=== PATIENT | male | born 1965 | race Caucasian/White ===

== ENCOUNTER 2020-06-23 10:41 | Emergency (ER) | payer MEDICAID ==
[~2020-06-23] VITALS: Ht 172.7 cm; Wt 93.2 kg
[~2020-06-23 10:41] MED LIST: BAC10T PO; BISA-77 PO; CLON-528 PO; ESCI20TA29 PO; FAMO-1 PO; LEVO175T38 PO; MOT200T PO; NORCO10T PO; ROSU20TA2 PO; TRAZ-91 PO
--- NOTE | 2020-06-23 11:06 | NUR ---
Pt having normal bowel movements, passing gas and urinating normally.
[2020-06-23 12:37] LABS: ALANINE AMINOTRANSFERASE 34 U/L (12-78); ALBUMIN 3.9 G/DL (3.4-5.0); ALBUMIN/GLOBULIN RATIO 1.2 (1.1-1.5); ALKALINE PHOSPHATASE 31 IU/L (46-116); ANION GAP 8 (8-16); BILIRUBIN,TOTAL 0.2 MG/DL (0.1-1.0); BLOOD UREA NITROGEN 17 MG/DL (7-18); BUN/CREATININE RATIO 12.5 (5.4-32.0); CALCIUM 8.8 MG/DL (8.5-10.1); CHLORIDE 102 MMOL/L (99-107); CREATININE 1.36 MG/DL (0.60-1.10); GLUCOSE 121 MG/DL (70-104); LIPASE 175 U/L (73-393); POTASSIUM 3.9 MMOL/L (3.5-5.1); SODIUM 139 MMOL/L (135-145); TOTAL PROTEIN 7.2 G/DL (6.4-8.2); eGFR 54 ML/MIN
[2020-06-23 12:48] LABS: ASPARTATE AMINO TRANSFERASE 43 U/L (10-37)
[2020-06-23] MEDS ORDERED: iohexol 300mg/ml 100ml inj. ONE (12:54)
[2020-06-23 12:56] LABS: BASOPHILS % (AUTO) 0.8 % (0-1); EOSINOPHILS # (AUTO) 0.1 X10'3 (0-0.9); EOSINOPHILS % (AUTO) 2.5 % (0-6); HEMATOCRIT 37.3 % (42.0-52.0); HEMOGLOBIN 12.8 g/dl (14.0-17.9); LYMPHOCYTES # (AUTO) 1.7 X10'3 (1.1-4.8); LYMPHOCYTES % (AUTO) 32.1 % (21-51); MEAN CORPUSCULAR HGB CONC 34.4 g/dL (33.0-36.5); MEAN CORPUSCULAR VOLUME 93.1 FL (78-98); MEAN PLATELET VOLUME 8.3 FL (7.4-10.4); MONOCYTES # (AUTO) 0.4 X10'3 (0-0.9); MONOCYTES % (AUTO) 6.5 % (2-12); NEUTROPHILS # (AUTO) 3.2 X10'3 (1.8-7.7); NEUTROPHILS % (AUTO) 58.1 % (42-75); PLATELET COUNT 209 X10'3 (140-440); RED BLOOD COUNT 4.01 X10'6 (4.70-6.10); RED CELL DISTRIBUTION WIDTH 13.4 % (11.5-14.5); WHITE BLOOD COUNT 5.4 X10'3 (4.5-11.0)
[2020-06-23] MEDS ORDERED: acetaminophen 325mg tablet PO ONE (13:40)
--- NOTE | 2020-06-23 13:41 | NUR ---
Verbal order for tyleonl 650mg secondary to ABD pain one time now.
[2020-06-23 14:46] VITALS: BP 142/92
== END 2020-06-23 14:48 | disposition home or self-care (01) ==
LOC: ER 10:42
DX: K42.9 Umbilical hernia without obstruction or gangrene (principal); E78.00 Pure hypercholesterolemia, unspecified; G89.29 Other chronic pain; F32.9 Major depressive disorder, single episode, unspecified; F17.200 Nicotine dependence, unspecified, uncomplicated; E05.90 Thyrotoxicosis, unspecified without thyrotoxic crisis or storm; G47.30 Sleep apnea, unspecified; Z59.0 Homelessness; Z88.1 Allergy status to other antibiotic agents; Z88.0 Allergy status to penicillin; Z79.899 Other long term (current) drug therapy
CPT/HCPCS: 36415; 74177; 80053; 83690; 85025; 99285; Q9967

== ENCOUNTER 2021-05-13 17:17 | Emergency (ER) | payer MEDICAID ==
[2021-05-13 17:54] VITALS: BP 135/81
[2021-05-13] MEDS ORDERED: CLOT15CR73 TOP (18:25)
== END 2021-05-13 18:34 | disposition home or self-care (01) ==
LOC: ER 17:18
DX: L30.4 Erythema intertrigo (principal); L02.214 Cutaneous abscess of groin; E78.00 Pure hypercholesterolemia, unspecified; G89.29 Other chronic pain; F32.9 Major depressive disorder, single episode, unspecified; E05.90 Thyrotoxicosis, unspecified without thyrotoxic crisis or storm; Z98.890 Other specified postprocedural states; Z59.0 Homelessness; Z88.0 Allergy status to penicillin; Z88.1 Allergy status to other antibiotic agents; Z79.2 Long term (current) use of antibiotics; Z79.899 Other long term (current) drug therapy
CPT/HCPCS: 99283

== ENCOUNTER 2021-08-11 09:10 | Inpatient (IN) | payer MEDICAID ==
[~2021-08-11] VITALS: Ht 170.2 cm; Wt 80.7 kg
[~2021-08-11 09:10] MED LIST changes: +CLOT15CR73 TOP
--- NOTE | 2021-08-11 11:29 | NUR ---
PAGER ID: [phone] MESSAGE: Do you have direct admit from [facility]? If not I will page group pager. Emely [phone]
--- NOTE | 2021-08-11 11:29 | NUR ---
Tessa called back and wanted to know if pt. is here. Pt. has just arrived in [id number]
--- NOTE | 2021-08-11 11:29 | NUR ---
Pt. oriented to room and given his call light.
[2021-08-11 11:30] VITALS: BP 90/47
[2021-08-11] MEDS ORDERED: metoclopramide 5 mg/ml inj IV PRN (12:35)
[2021-08-11] MEDS ORDERED: mag hydrox/Alum hydrox/simeth 30ml oral suspension PO PRN (12:35)
[2021-08-11] MEDS ORDERED: magnesium Cl slow-release 64mg tablet PO PRN (12:35)
[2021-08-11] MEDS ORDERED: magnesium 4gm in 100ml NS 100 ML IV PRN (12:35)
[2021-08-11] MEDS ORDERED: HYDROcodone/acetaminophen 5mg/325mg tablet PO PRN (12:35)
[2021-08-11] MEDS ORDERED: ALBUTEROL INHALER 1 PUFF/90 MCG INHALER IH PRN (12:35)
[2021-08-11] MEDS ORDERED: magnesium 2GM in 50ml NS 50 ML IV PRN (12:35)
[2021-08-11] MEDS ORDERED: potassium Cl 20 mEq SR tablet PO PRN (12:35)
[2021-08-11] MEDS ORDERED: potassium Cl 40MEQ/1/2NS 520ml 520 ML IV PRN ×2 (12:35)
[2021-08-11] MEDS ORDERED: magnesium hydroxide 30ml (MOM) UD suspension PO PRN (12:35)
[2021-08-11] MEDS ORDERED: bisacodyl 10mg suppository rectal RC PRN (12:35)
[2021-08-11] MEDS ORDERED: ondansetron/PF 4mg/2ml inj IV PRN (12:35)
[2021-08-11] MEDS ORDERED: acetaminophen 325mg tablet PO PRN ×2 (12:35)
[2021-08-11] MEDS: HYDROcodone/acetaminophen 10/325mg tab PO PRN (13:48)
[2021-08-11] MEDS: normal saline 1000ml 1,000 ML IV SCH (13:49)
[2021-08-11 13:51] LABS: BASOPHILS % (AUTO) 0 % (0-1); EOSINOPHILS % (AUTO) 0 % (0-6); HEMOGLOBIN 11.2 g/dl (14.0-17.9); LYMPHOCYTES # (AUTO) 0.3 X10'3 (1.1-4.8); MEAN CORPUSCULAR HEMOGLOBIN 32.8 PG (27.0-31.0); MEAN CORPUSCULAR VOLUME 96.4 FL (78-98); MEAN PLATELET VOLUME 8.7 FL (7.4-10.4); MONOCYTES # (AUTO) 0.1 X10'3 (0-0.9); MONOCYTES % (AUTO) 1.6 % (2-12); NEUTROPHILS # (AUTO) 8.4 X10'3 (1.8-7.7); NEUTROPHILS % (AUTO) 95.4 % (42-75); PLATELET COUNT 147 X10'3 (140-440); RED BLOOD COUNT 3.42 X10'6 (4.70-6.10); RED CELL DISTRIBUTION WIDTH 14.5 % (11.5-14.5); WHITE BLOOD COUNT 8.8 X10'3 (4.5-11.0)
[2021-08-11 14:00] LABS: PARTIAL THROMBOPLASTIN TIME 38 SECONDS (22-32)
[2021-08-11 14:01] LABS: D-DIMER 0.36 MG/L FEU (0-0.50)
[2021-08-11 14:13] LABS: ALANINE AMINOTRANSFERASE 135 U/L (12-78); ALBUMIN 3.4 G/DL (3.4-5.0); ALBUMIN/GLOBULIN RATIO 0.9 (1.1-1.5); ALKALINE PHOSPHATASE 65 IU/L (46-116); ANION GAP 7 (8-16); ASPARTATE AMINO TRANSFERASE 246 U/L (10-37); BILIRUBIN,TOTAL 0.5 MG/DL (0.1-1.0); BLOOD UREA NITROGEN 16 MG/DL (7-18); BUN/CREATININE RATIO 11.7 (5.4-32.0); CALCIUM 8.3 MG/DL (8.5-10.1); CHLORIDE 101 MMOL/L (99-107); CREATININE 1.37 MG/DL (0.60-1.10); GLUCOSE 132 MG/DL (70-104); POTASSIUM 3.4 MMOL/L (3.5-5.1); SODIUM 137 MMOL/L (135-145); TOTAL CARBON DIOXIDE 29.5 MMOL/L (24-32); eGFR 54 ML/MIN
--- NOTE | 2021-08-11 14:37 | NUR ---
New IV placed LFA 20G. Pt. tolerated well.
--- NOTE | 2021-08-11 14:38 | NUR ---
Called pharmacy. Pharmacist states they are going to call pt's preferred pharmacy to complete med. req.
--- NOTE | 2021-08-11 14:48 | NUR ---
Per pt. he has not been taking his medications for "weeks".
--- NOTE | 2021-08-11 15:01 | NUR ---
PAGER ID: [phone] MESSAGE: [facility] [id number] [facility] paperwork states pt. may have PMX Graves disease. Pt states he has not been taking any meds including thyroid pills. Do you want TSH drawn? Emely [phone]
[2021-08-11] MEDS ORDERED: LEVO75TA7 PO (15:08)
[2021-08-11] MEDS: nicotine 14mg patch - 24hr TD SCH (15:18)
[2021-08-11] MEDS: potassium Cl 20 mEq SR tablet PO PRN ×2 (15:18→19:24)
[2021-08-11 15:40] VITALS: BP 100/52
[2021-08-11] MEDS: REMDESIVIR INJ 100 MG in normal saline 100ml IV soln 80 ML IV SCH (16:40)
[2021-08-11 18:00] VITALS: BP 101/46
--- NOTE | 2021-08-11 18:22 | NUR ---
Problems reprioritized. Patient report given, questions answered & plan of care reviewed with Rebecca THORNTON.
--- NOTE | 2021-08-11 18:49 | NUR ---
Patient in room ORTHO 4011. I have received report from Emely THORNTON and had the opportunity to ask questions and assume patient care.
[2021-08-11] MEDS: dexamethasone inj 6 MG in normal saline 50ml IV soln 50 ML IV SCH (19:24)
[2021-08-11] MEDS: docusate sod 100mg capsule PO SCH (19:24)
[2021-08-11] MEDS: K and/or MAG REPLACEMENT MC SCH (19:25)
[2021-08-11] MEDS ORDERED: temazepam 15mg capsule PO PRN (21:00)
[2021-08-11 22:00] VITALS: BP 107/56
[2021-08-12] MEDS: potassium Cl 20 mEq SR tablet PO PRN (00:10)
[2021-08-12] MEDS: normal saline 1000ml 1,000 ML IV SCH ×4 (00:10→23:39)
[2021-08-12 02:00] VITALS: BP 93/55
[2021-08-12 06:30] VITALS: BP 101/51
--- NOTE | 2021-08-12 06:35 | NUR ---
Problems reprioritized. Patient report given, questions answered & plan of care reviewed with Jaky THORNTON.
[2021-08-12] MEDS: docusate sod 100mg capsule PO SCH ×2 (07:12→19:06)
[2021-08-12] MEDS: enoxaparin 40mg/0.4ml syringe SUBCUT SCH (07:12)
[2021-08-12] MEDS: nicotine 14mg patch - 24hr TD SCH (07:12)
[2021-08-12] MEDS: levoTHYROXINE 75mcg tablet PO SCH (07:12)
[2021-08-12] MEDS: dexamethasone inj 6 MG in normal saline 50ml IV soln 50 ML IV SCH ×2 (07:13→19:06)
--- NOTE | 2021-08-12 07:57 | NUR ---
Malnutrition Consult: Pt admit DX COVID-19 and meth abuse hx homeless per EMR. Pt unsure of wt loss hx per RN Malnutrition Screen. Pt has normal strength, no edema/wounds, no prior wt hx w/ current scaled wt BMI 28, and PO 100% first two meals this admit regular/SB6 diet meeting needs. Pt lacks minimum malnutrition criteria at this time. Will monitor for nutrition intervention needs. Addendum: 08/12/21 at [address] Amended: Links added.
[2021-08-12] MEDS: K and/or MAG REPLACEMENT MC SCH ×2 (08:00→19:06)
[2021-08-12] MEDS: REMDESIVIR INJ 100 MG in normal saline 100ml IV soln 80 ML IV SCH (08:33)
[2021-08-12 09:02] LABS: BASOPHILS % (AUTO) 0 % (0-1); EOSINOPHILS % (AUTO) 0 % (0-6); HEMATOCRIT 28.3 % (42.0-52.0); HEMOGLOBIN 9.6 g/dl (14.0-17.9); LYMPHOCYTES # (AUTO) 0.5 X10'3 (1.1-4.8); LYMPHOCYTES % (AUTO) 4.5 % (21-51); MEAN CORPUSCULAR HEMOGLOBIN 33.1 PG (27.0-31.0); MEAN CORPUSCULAR HGB CONC 33.8 g/dL (33.0-36.5); MEAN CORPUSCULAR VOLUME 97.8 FL (78-98); MEAN PLATELET VOLUME 8.6 FL (7.4-10.4); MONOCYTES # (AUTO) 0.1 X10'3 (0-0.9); MONOCYTES % (AUTO) 1.3 % (2-12); NEUTROPHILS # (AUTO) 9.7 X10'3 (1.8-7.7); NEUTROPHILS % (AUTO) 94.2 % (42-75); PLATELET COUNT 131 X10'3 (140-440); RED BLOOD COUNT 2.89 X10'6 (4.70-6.10); RED CELL DISTRIBUTION WIDTH 14.5 % (11.5-14.5); WHITE BLOOD COUNT 10.3 X10'3 (4.5-11.0)
[2021-08-12 09:22] LABS: D-DIMER 0.33 MG/L FEU (0-0.50)
[2021-08-12 09:29] LABS: ALANINE AMINOTRANSFERASE 115 U/L (12-78); ALBUMIN/GLOBULIN RATIO 0.9 (1.1-1.5); ALKALINE PHOSPHATASE 53 IU/L (46-116); ANION GAP 7 (8-16); ASPARTATE AMINO TRANSFERASE 164 U/L (10-37); BILIRUBIN,TOTAL 0.3 MG/DL (0.1-1.0); BLOOD UREA NITROGEN 23 MG/DL (7-18); BUN/CREATININE RATIO 16.3 (5.4-32.0); CALCIUM 7.9 MG/DL (8.5-10.1); CHLORIDE 105 MMOL/L (99-107); CREATININE 1.41 MG/DL (0.60-1.10); GLUCOSE 211 MG/DL (70-104); LACTATE DEHYDROGENASE 694 U/L (85-227); MAGNESIUM 1.9 MG/DL (1.5-2.4); SODIUM 137 MMOL/L (135-145); TOTAL CARBON DIOXIDE 24.9 MMOL/L (24-32); TOTAL PROTEIN 6.2 G/DL (6.4-8.2); eGFR 52 ML/MIN
[2021-08-12 09:45] VITALS: BP 94/38
[2021-08-12] MEDS ORDERED: ALPRAZolam 0.5mg tablet PO PRN (11:30)
[2021-08-12 15:00] VITALS: BP 99/55
[2021-08-12 18:00] VITALS: BP 93/55
--- NOTE | 2021-08-12 18:02 | NUR ---
Problems reprioritized. Patient report given, questions answered & plan of care reviewed with NORBERTO Fernandez.
--- NOTE | 2021-08-12 18:19 | NUR ---
Patient in room ORTHO 4011. I have received report from Jaky THORNTON and had the opportunity to ask questions and assume patient care.
[2021-08-12 22:00] VITALS: BP 90/45
[2021-08-13 02:00] VITALS: BP 93/50
[2021-08-13] MEDS: HYDROcodone/acetaminophen 10/325mg tab PO PRN (05:06)
--- NOTE | 2021-08-13 06:25 | NUR ---
Problems reprioritized. Patient report given, questions answered & plan of care reviewed with Gold THORNTON.
[2021-08-13] MEDS: REMDESIVIR INJ 100 MG in normal saline 100ml IV soln 80 ML IV SCH (07:24)
[2021-08-13] MEDS: levoTHYROXINE 75mcg tablet PO SCH (07:24)
[2021-08-13] MEDS: docusate sod 100mg capsule PO SCH ×2 (07:24→19:11)
[2021-08-13] MEDS: dexamethasone inj 6 MG in normal saline 50ml IV soln 50 ML IV SCH ×2 (07:24→19:11)
[2021-08-13] MEDS: enoxaparin 40mg/0.4ml syringe SUBCUT SCH (07:25)
[2021-08-13] MEDS: nicotine 14mg patch - 24hr TD SCH (07:26)
[2021-08-13 08:01] LABS: BASOPHILS % (AUTO) 0.1 % (0-1); EOSINOPHILS % (AUTO) 0 % (0-6); HEMATOCRIT 28.8 % (42.0-52.0); HEMOGLOBIN 9.8 g/dl (14.0-17.9); LYMPHOCYTES # (AUTO) 0.6 X10'3 (1.1-4.8); LYMPHOCYTES % (AUTO) 5.9 % (21-51); MEAN PLATELET VOLUME 9.2 FL (7.4-10.4); MONOCYTES # (AUTO) 0.3 X10'3 (0-0.9); MONOCYTES % (AUTO) 3.4 % (2-12); NEUTROPHILS % (AUTO) 90.6 % (42-75); PLATELET COUNT 163 X10'3 (140-440); RED BLOOD COUNT 2.96 X10'6 (4.70-6.10); RED CELL DISTRIBUTION WIDTH 14.5 % (11.5-14.5); WHITE BLOOD COUNT 9.9 X10'3 (4.5-11.0)
[2021-08-13 08:18] LABS: ALANINE AMINOTRANSFERASE 96 U/L (12-78); ALBUMIN 3.1 G/DL (3.4-5.0); ALBUMIN/GLOBULIN RATIO 0.9 (1.1-1.5); ALKALINE PHOSPHATASE 52 IU/L (46-116); ANION GAP 12 (8-16); ASPARTATE AMINO TRANSFERASE 123 U/L (10-37); BILIRUBIN,TOTAL 0.2 MG/DL (0.1-1.0); BLOOD UREA NITROGEN 21 MG/DL (7-18); BUN/CREATININE RATIO 17.8 (5.4-32.0); C-REACTIVE PROTEIN 6.77 MG/DL (0.0-0.5); CHLORIDE 105 MMOL/L (99-107); CREATININE 1.18 MG/DL (0.60-1.10); GLUCOSE 130 MG/DL (70-104); LACTATE DEHYDROGENASE 768 U/L (85-227); MAGNESIUM 2.1 MG/DL (1.5-2.4); POTASSIUM 4.1 MMOL/L (3.5-5.1); SODIUM 140 MMOL/L (135-145); TOTAL CARBON DIOXIDE 23.2 MMOL/L (24-32); TOTAL PROTEIN 6.6 G/DL (6.4-8.2); eGFR 64 ML/MIN
[2021-08-13] MEDS: K and/or MAG REPLACEMENT MC SCH ×2 (09:38→19:11)
[2021-08-13 10:00] VITALS: BP 104/60
[2021-08-13 11:01] LABS: D-DIMER 0.23 MG/L FEU (0-0.50)
[2021-08-13 14:00] VITALS: BP 104/60
[2021-08-13] MEDS: normal saline 1000ml 1,000 ML IV SCH (16:06)
--- NOTE | 2021-08-13 16:51 | NUR ---
PT RESTED COMFORTABLY THROUGHOUT SHIFT. DURING PM ASSESSMENT PT 02 LEVELS FOUND TO BE IN THE 80'S ON 4L OF O2, RESP THERAPIST CALLED AND PT NOW REQUIRING 15 L HIGH FLOW O2 WITH NON REBREATHER MASK OF 10L. DR. VERA NOTIFIED AND NEW LAB ORDERS PLACED, MD MADE AWARE OF PATIENTS STATUS AND PATIENT (+) BLOOD CULTURES. WILL CONTINUE TO MONITOR PT AND WILL NOTIFY MD WITH ANY CHANGES IN PATIENTS CONDITION.
[2021-08-13 18:00] VITALS: BP 104/58
--- NOTE | 2021-08-13 18:39 | NUR ---
Patient in room ORTHO 4011. I have received report from Gold THORNTON and had the opportunity to ask questions and assume patient care.
--- NOTE | 2021-08-13 19:15 | NUR ---
Patient refusing to wear high flow oxygen, states, "I am drowning from the moisture." Patient requesting to where only nonrebreather. oxygen saturation 96% on 15L nonrebreather. Patient in no distress.
[2021-08-13 19:18] LABS: D-DIMER < 0.19 MG/L FEU (0-0.50)
[2021-08-13 22:00] VITALS: BP 99/63
[2021-08-14] MEDS: normal saline 1000ml 1,000 ML IV SCH (01:54)
[2021-08-14 02:00] VITALS: BP 122/68
--- NOTE | 2021-08-14 06:25 | NUR ---
Problems reprioritized. Patient report given, questions answered & plan of care reviewed with Gold THORNTON.
[2021-08-14 08:08] LABS: BASOPHILS % (AUTO) 0.2 % (0-1); EOSINOPHILS % (AUTO) 0 % (0-6); HEMATOCRIT 29.9 % (42.0-52.0); LYMPHOCYTES # (AUTO) 0.8 X10'3 (1.1-4.8); LYMPHOCYTES % (AUTO) 8.4 % (21-51); MEAN CORPUSCULAR HEMOGLOBIN 32.5 PG (27.0-31.0); MEAN CORPUSCULAR HGB CONC 33.5 g/dL (33.0-36.5); MEAN CORPUSCULAR VOLUME 96.8 FL (78-98); MEAN PLATELET VOLUME 9.2 FL (7.4-10.4); MONOCYTES # (AUTO) 0.5 X10'3 (0-0.9); NEUTROPHILS # (AUTO) 8.2 X10'3 (1.8-7.7); NEUTROPHILS % (AUTO) 86.4 % (42-75); PLATELET COUNT 185 X10'3 (140-440); RED BLOOD COUNT 3.09 X10'6 (4.70-6.10); RED CELL DISTRIBUTION WIDTH 14.4 % (11.5-14.5); WHITE BLOOD COUNT 9.5 X10'3 (4.5-11.0)
[2021-08-14 08:29] LABS: ALANINE AMINOTRANSFERASE 89 U/L (12-78); ALBUMIN 3.2 G/DL (3.4-5.0); ALBUMIN/GLOBULIN RATIO 0.9 (1.1-1.5); ALKALINE PHOSPHATASE 53 IU/L (46-116); ANION GAP 9 (8-16); ASPARTATE AMINO TRANSFERASE 91 U/L (10-37); BILIRUBIN,TOTAL 0.3 MG/DL (0.1-1.0); BLOOD UREA NITROGEN 19 MG/DL (7-18); C-REACTIVE PROTEIN 4.39 MG/DL (0.0-0.5); CALCIUM 7.9 MG/DL (8.5-10.1); CHLORIDE 102 MMOL/L (99-107); CREATININE 1.12 MG/DL (0.60-1.10); GLUCOSE 113 MG/DL (70-104); LACTATE DEHYDROGENASE 766 U/L (85-227); MAGNESIUM 1.9 MG/DL (1.5-2.4); POTASSIUM 3.9 MMOL/L (3.5-5.1); SODIUM 139 MMOL/L (135-145); TOTAL CARBON DIOXIDE 27.7 MMOL/L (24-32); TOTAL PROTEIN 6.8 G/DL (6.4-8.2); eGFR 68 ML/MIN
[2021-08-14 08:52] LABS: D-DIMER < 0.19 MG/L FEU (0-0.50)
[2021-08-14 08:59] LABS: PLATELET ESTIMATE NORMAL; TOTAL CELLS COUNTED 100
--- NOTE | 2021-08-14 09:11 | NUR ---
PT DECIDED TO LEAVE AMA. RISK OF LEAVING AGAINST MEDICAL ADVICE EXPLAINED TO PATIENT AND PT UNDERSTANDS THE RISK. DR. VERA NOTIFIED OF PATIENTS REQUEST AND PT AMBULATED OFF UNIT WITH HAT BAND ATTACHER. IV ACCESS AND EVENT PLANNING MANAGER REMOVED FROM PATIENT.
[2021-08-19] MEDS ORDERED: PRED10TA23 PO (13:28)
== END 2021-08-14 09:10 | disposition left against medical advice (07) | DRG 137 ==
LOC: UNDOADMIN 11:17 → ORTHO 4S 11:17 → UNDODISIN 11:45 → ORTHO 4S 12:44
PROVIDERS: ADMIT Internal Medicine; ATTEND Internal Medicine
PROC: XW033E5 Introduction of Remdesivir Anti-infective into Peripheral Vein, Percutaneous Approach, New Technology Group 5 (ICD-10-PCS; principal; 2021-08-11)
PROC: 5A0935A Assistance with Respiratory Ventilation, Less than 24 Consecutive Hours, High Flow/Velocity Cannula (ICD-10-PCS; 2021-08-13)
DX: U07.1 COVID-19 (principal); J96.01 Acute respiratory failure with hypoxia; J12.82 Pneumonia due to coronavirus disease 2019; F15.90 Other stimulant use, unspecified, uncomplicated; R26.2 Difficulty in walking, not elsewhere classified; D64.9 Anemia, unspecified; Z53.29 Procedure and treatment not carried out because of patient's decision for other reasons; M25.551 Pain in right hip; E03.9 Hypothyroidism, unspecified; F41.9 Anxiety disorder, unspecified; F17.210 Nicotine dependence, cigarettes, uncomplicated; Z59.00 Homelessness unspecified
CPT/HCPCS: 36415; 71045; 73502; 80053; 83605; 83615; 83735; 84443; 85007; 85025; 85379; 85610; 85730; 86140; 87040; 87077; 87081; 87186; 94760; G0378; J1100; J1650; J7030

== ENCOUNTER 2021-08-15 11:40 | Inpatient (IN) | payer MEDICAID ==
[~2021-08-15] VITALS: Ht 170.2 cm; Wt 80.0 kg
[~2021-08-15 11:40] MED LIST changes: -BAC10T PO; -BISA-77 PO; -CLON-528 PO; -CLOT15CR73 TOP; -ESCI20TA29 PO; -FAMO-1 PO; -LEVO175T38 PO; +LEVO75TA7 PO; -MOT200T PO; -NORCO10T PO; -ROSU20TA2 PO; -TRAZ-91 PO
[2021-08-15] MEDS ORDERED: ALBUTEROL INHALER 1 PUFF/90 MCG INHALER IH PRN (12:05)
--- NOTE | 2021-08-15 12:15 | NUR ---
pt amb with steady gait to portapotty, no assistance needed
--- NOTE | 2021-08-15 12:30 | NUR ---
pt back on ambulance dec sat wer 87% on 2 liters with ambulation, increased, nasal cannula to 6 liters pulse ox increased to 96% after approx 5 minutes
[2021-08-15] MEDS ORDERED: dexamethasone sod phosphate 10mg/ml inj IV STA (12:32)
[2021-08-15] MEDS ORDERED: CefTRIAXone 2gm/D5W 50ml BAG 50 ML IV ONE (12:35)
[2021-08-15] MEDS ORDERED: normal saline 1000ML IV soln IVB ONE (12:35)
[2021-08-15] MEDS ORDERED: azithromycin/NS 500mg/250ml 250 ML IV ONE (12:35)
--- NOTE | 2021-08-15 12:41 | NUR ---
attempted IV, no success.
--- NOTE | 2021-08-15 13:15 | NUR ---
pt is resting quietly outside, gave him 2 blankets, waiting for bed inside ER.
[2021-08-15 13:26] LABS: BASOPHILS % (AUTO) 0.3 % (0-1); EOSINOPHILS % (AUTO) 0.2 % (0-6); HEMATOCRIT 32.8 % (42.0-52.0); HEMOGLOBIN 11.2 g/dl (14.0-17.9); LYMPHOCYTES # (AUTO) 0.8 X10'3 (1.1-4.8); LYMPHOCYTES % (AUTO) 9.3 % (21-51); MEAN CORPUSCULAR HEMOGLOBIN 32.5 PG (27.0-31.0); MEAN CORPUSCULAR HGB CONC 34.1 g/dL (33.0-36.5); MEAN CORPUSCULAR VOLUME 95.3 FL (78-98); MEAN PLATELET VOLUME 8.8 FL (7.4-10.4); MONOCYTES # (AUTO) 0.9 X10'3 (0-0.9); MONOCYTES % (AUTO) 9.6 % (2-12); NEUTROPHILS # (AUTO) 7.3 X10'3 (1.8-7.7); NEUTROPHILS % (AUTO) 80.6 % (42-75); PLATELET COUNT 220 X10'3 (140-440); RED BLOOD COUNT 3.45 X10'6 (4.70-6.10); RED CELL DISTRIBUTION WIDTH 14.1 % (11.5-14.5)
[2021-08-15 13:27] LABS: D-DIMER 0.26 MG/L FEU (0-0.50)
--- NOTE | 2021-08-15 13:31 | NUR ---
pt amb with slow steady gait to room 7, report to Blank THORNTON
[2021-08-15 13:42] LABS: ALANINE AMINOTRANSFERASE 89 U/L (12-78); ALBUMIN 3.9 G/DL (3.4-5.0); ALBUMIN/GLOBULIN RATIO 0.9 (1.1-1.5); ALKALINE PHOSPHATASE 61 IU/L (46-116); ANION GAP 7 (8-16); ASPARTATE AMINO TRANSFERASE 101 U/L (10-37); BILIRUBIN,TOTAL 0.6 MG/DL (0.1-1.0); BLOOD UREA NITROGEN 21 MG/DL (7-18); BUN/CREATININE RATIO 16.8 (5.4-32.0); CALCIUM 9.1 MG/DL (8.5-10.1); CHLORIDE 98 MMOL/L (99-107); CREATININE 1.25 MG/DL (0.60-1.10); ETHANOL < 0.010 GM/DL (0.0-0.010); GLUCOSE 115 MG/DL (70-104); POTASSIUM 3.4 MMOL/L (3.5-5.1); SODIUM 136 MMOL/L (135-145); TOTAL CARBON DIOXIDE 31.5 MMOL/L (24-32); TOTAL PROTEIN 8.1 G/DL (6.4-8.2); eGFR 60 ML/MIN
[2021-08-15 13:56] LABS: NUCLEATED RED BLOOD CELLS 1 /100WBC (0-0); TOTAL CELLS COUNTED 100
[2021-08-15 13:59] LABS: PLATELET ESTIMATE NORMAL
[2021-08-15 14:00] LABS: POLYCHROMASIA FEW; STOMATOCYTES FEW
[2021-08-15] MEDS ORDERED: REMDESIVIR INJ 200 MG in normal saline 100ml IV soln 60 ML IV ONE (14:40)
[2021-08-15] MEDS ORDERED: REMDESIVIR 100 MG in NS 100ml IVPB IV ONE (15:30)
[2021-08-15] MEDS ORDERED: magnesium hydroxide 30ml (MOM) UD suspension PO PRN (15:40)
[2021-08-15] MEDS ORDERED: magnesium Cl slow-release 64mg tablet PO PRN (15:40)
[2021-08-15] MEDS ORDERED: bisacodyl 10mg suppository rectal RC PRN (15:40)
[2021-08-15] MEDS ORDERED: magnesium 4gm in 100ml NS 100 ML IV PRN (15:40)
[2021-08-15] MEDS ORDERED: diphenhydrAMINE 25mg capsule PO PRN (15:40)
[2021-08-15] MEDS ORDERED: morphine 2 MG/ML inj. syringe IV PRN ×2 (15:40)
[2021-08-15] MEDS ORDERED: magnesium 2GM in 50ml NS 50 ML IV PRN (15:40)
[2021-08-15] MEDS ORDERED: mag hydrox/Alum hydrox/simeth 30ml oral suspension PO PRN (15:40)
[2021-08-15] MEDS ORDERED: potassium Cl 40MEQ/1/2NS 520ml 520 ML IV PRN ×2 (15:40)
[2021-08-15] MEDS ORDERED: acetaminophen 325mg tablet PO PRN ×2 (15:40)
[2021-08-15] MEDS ORDERED: potassium Cl 20 mEq SR tablet PO PRN (15:40)
[2021-08-15] MEDS ORDERED: acetaminophen 650mg rectal suppository RC PRN (15:40)
[2021-08-15 15:55] LABS: HEMOGLOBIN A1C 6.7 % (4.5-6.2)
[2021-08-15] MEDS: normal saline 1000ml 1,000 ML IV SCH (16:43)
[2021-08-15] MEDS ORDERED: dexamethasone 4mg/ml inj IV SCH (20:00)
[2021-08-15] MEDS: dexamethasone 6 MG in NS 50ml IV soln IV SCH (20:12)
[2021-08-15] MEDS: potassium Cl 20 mEq SR tablet PO PRN (20:13)
[2021-08-15] MEDS: K and/or MAG REPLACEMENT MC SCH (20:13)
[2021-08-15] MEDS: docusate sod 100mg capsule PO SCH (20:18)
[2021-08-15] MEDS: heparin, porcine 5000 units/ml vial SQ SCH (20:19)
--- NOTE | 2021-08-15 20:27 | NUR ---
pt titrated to 4 L on NC
[2021-08-16] MEDS: potassium Cl 20 mEq SR tablet PO PRN (01:26)
[2021-08-16] MEDS ORDERED: levoTHYROXINE 75mcg tablet PO SCH (07:00)
[2021-08-16 07:39] LABS: BASOPHILS % (AUTO) 0.1 % (0-1); EOSINOPHILS % (AUTO) 0 % (0-6); HEMATOCRIT 30.8 % (42.0-52.0); HEMOGLOBIN 10.5 g/dl (14.0-17.9); LYMPHOCYTES # (AUTO) 1.1 X10'3 (1.1-4.8); MEAN CORPUSCULAR HEMOGLOBIN 32.7 PG (27.0-31.0); MEAN CORPUSCULAR VOLUME 96.3 FL (78-98); MEAN PLATELET VOLUME 8.6 FL (7.4-10.4); MONOCYTES % (AUTO) 11.5 % (2-12); NEUTROPHILS # (AUTO) 6.5 X10'3 (1.8-7.7); NEUTROPHILS % (AUTO) 75.4 % (42-75); PLATELET COUNT 215 X10'3 (140-440); RED CELL DISTRIBUTION WIDTH 14.8 % (11.5-14.5); WHITE BLOOD COUNT 8.7 X10'3 (4.5-11.0)
[2021-08-16 07:54] LABS: D-DIMER 0.22 MG/L FEU (0-0.50)
[2021-08-16] MEDS: docusate sod 100mg capsule PO SCH ×2 (08:00→20:00)
[2021-08-16] MEDS: K and/or MAG REPLACEMENT MC SCH ×2 (08:00→20:00)
[2021-08-16 08:03] LABS: ALANINE AMINOTRANSFERASE 73 U/L (12-78); ALBUMIN 3.3 G/DL (3.4-5.0); ALBUMIN/GLOBULIN RATIO 0.8 (1.1-1.5); ALKALINE PHOSPHATASE 51 IU/L (46-116); ANION GAP 8 (8-16); ASPARTATE AMINO TRANSFERASE 71 U/L (10-37); BILIRUBIN,TOTAL 0.4 MG/DL (0.1-1.0); BLOOD UREA NITROGEN 15 MG/DL (7-18); BUN/CREATININE RATIO 14.3 (5.4-32.0); C-REACTIVE PROTEIN 11.19 MG/DL (0.0-0.5); CALCIUM 8.4 MG/DL (8.5-10.1); CHLORIDE 100 MMOL/L (99-107); CHOL/HDL RATIO 4.8 (0.00-4.99); CHOLESTEROL 184 MG/DL (0-200); CREATININE 1.05 MG/DL (0.60-1.10); GLUCOSE 123 MG/DL (70-104); HDL CHOLESTEROL 38 MG/DL (35-60); LACTATE DEHYDROGENASE 783 U/L (85-227); LDL CHOLESTEROL 112 MG/DL (50-100); MAGNESIUM 2.2 MG/DL (1.5-2.4); PHOSPHORUS 4.1 MG/DL (2.3-4.5); POTASSIUM 4.2 MMOL/L (3.5-5.1); SODIUM 136 MMOL/L (135-145); TOTAL CARBON DIOXIDE 27.6 MMOL/L (24-32); TOTAL PROTEIN 7.6 G/DL (6.4-8.2); TRIGLYCERIDES 178 MG/DL (20-135); eGFR 73 ML/MIN
[2021-08-16] MEDS: heparin, porcine 5000 units/ml vial SQ SCH ×2 (09:19→21:36)
[2021-08-16] MEDS: dexamethasone 6 MG in NS 50ml IV soln IV SCH ×2 (09:21→21:35)
[2021-08-16] MEDS: levoTHYROXINE 75mcg tablet PO SCH (09:21)
[2021-08-16 09:48] LABS: CLARITY,URINE SLIGHTLY CLOUDY (Clear); COLOR,URINE YELLOW (Yellow); GLUCOSE, URINE NEGATIVE (Neg); KETONES,URINE NEGATIVE (Neg); LEUKOCYTE ESTERASE ,URINE NEGATIVE (Neg); NITRITES, URINE NEGATIVE (Neg); OCCULT BLOOD,URINE SMALL (Neg); PROTEIN,URINE NEGATIVE (Neg); UA COLLECTION TYPE NON-SPECIFIED; URINE AMPHETAMINE SCREEN NEGATIVE (Neg); URINE BARBITUATE SCREEN NEGATIVE (Neg); URINE BENZODIAZEPINES SCREEN NEGATIVE (Neg); URINE CANNABINOID SCREEN NEGATIVE (Neg); URINE COCAINE SCREEN NEGATIVE (Neg); URINE METHADONE SCREEN NEGATIVE (Neg); URINE OPIATE SCREEN NEGATIVE (Neg); URINE PHENCYCLIDINE SCREEN NEGATIVE (Neg); UROBILINOGEN,URINE 0.2 E.U/dL (0.2-1.0)
[2021-08-16 10:08] LABS: MUCUS STRANDS FEW /LPF (Neg); SQUAMOUS EPITHELIAL CELL,UR FEW /LPF (FEW)
[2021-08-16 10:09] LABS: BACTERIA,URINE 1+ /HPF (Neg); RBC,URINE 0-2 /HPF (0-2); WBC,URINE 0-4 /HPF (0-4)
[2021-08-16 19:42] VITALS: BP 110/60
--- NOTE | 2021-08-16 20:06 | NUR ---
PT ARRIVED TO 4006 FROM ER. O292% ON 2L. VSS. PT HAS BEEN ORIENTED TO THE ROOM. RECEIVED REPORT FROM NORBERTO SHANKAR PRIOR TO PT'S ARRIVAL
[2021-08-16 22:00] VITALS: BP 103/57
[2021-08-17] MEDS: HYDROcodone/acetaminophen 10/325mg tab PO PRN ×2 (00:46→11:05)
[2021-08-17 01:58] VITALS: BP 103/58
[2021-08-17 06:00] VITALS: BP 104/53
--- NOTE | 2021-08-17 06:27 | NUR ---
Problems reprioritized. Patient report given, questions answered & plan of care reviewed with NOREBRTO MAIER.
--- NOTE | 2021-08-17 06:33 | NUR ---
Patient in room ORTHO 4006. I have received report from NORBERTO CASSIDY and had the opportunity to ask questions and assume patient care.
[2021-08-17 07:51] LABS: BASOPHILS % (AUTO) 0.6 % (0-1); EOSINOPHILS % (AUTO) 0 % (0-6); HEMATOCRIT 30.1 % (42.0-52.0); HEMOGLOBIN 10.1 g/dl (14.0-17.9); LYMPHOCYTES # (AUTO) 0.7 X10'3 (1.1-4.8); LYMPHOCYTES % (AUTO) 10.1 % (21-51); MEAN CORPUSCULAR HGB CONC 33.6 g/dL (33.0-36.5); MEAN CORPUSCULAR VOLUME 95.1 FL (78-98); MEAN PLATELET VOLUME 8.4 FL (7.4-10.4); MONOCYTES # (AUTO) 0.7 X10'3 (0-0.9); MONOCYTES % (AUTO) 9.4 % (2-12); NEUTROPHILS # (AUTO) 5.8 X10'3 (1.8-7.7); NEUTROPHILS % (AUTO) 79.9 % (42-75); PLATELET COUNT 284 X10'3 (140-440); RED BLOOD COUNT 3.17 X10'6 (4.70-6.10); RED CELL DISTRIBUTION WIDTH 14.1 % (11.5-14.5); WHITE BLOOD COUNT 7.2 X10'3 (4.5-11.0)
[2021-08-17] MEDS: K and/or MAG REPLACEMENT MC SCH ×2 (08:00→20:00)
[2021-08-17] MEDS: docusate sod 100mg capsule PO SCH ×2 (08:14→20:00)
[2021-08-17] MEDS: dexamethasone 6 MG in NS 50ml IV soln IV SCH ×2 (08:14→20:11)
[2021-08-17] MEDS: heparin, porcine 5000 units/ml vial SQ SCH ×2 (08:15→20:02)
[2021-08-17 08:20] LABS: ALANINE AMINOTRANSFERASE 67 U/L (12-78); ALBUMIN 3.5 G/DL (3.4-5.0); ALBUMIN/GLOBULIN RATIO 0.9 (1.1-1.5); ALKALINE PHOSPHATASE 51 IU/L (46-116); ANION GAP 10 (8-16); ASPARTATE AMINO TRANSFERASE 54 U/L (10-37); BILIRUBIN,TOTAL 0.5 MG/DL (0.1-1.0); BLOOD UREA NITROGEN 17 MG/DL (7-18); BUN/CREATININE RATIO 16.5 (5.4-32.0); C-REACTIVE PROTEIN 5.25 MG/DL (0.0-0.5); CHLORIDE 97 MMOL/L (99-107); CREATININE 1.03 MG/DL (0.60-1.10); GLUCOSE 140 MG/DL (70-104); LACTATE DEHYDROGENASE 715 U/L (85-227); MAGNESIUM 2.3 MG/DL (1.5-2.4); PHOSPHORUS 3.6 MG/DL (2.3-4.5); SODIUM 134 MMOL/L (135-145); TOTAL CARBON DIOXIDE 27.3 MMOL/L (24-32); TOTAL PROTEIN 7.5 G/DL (6.4-8.2); eGFR 75 ML/MIN
[2021-08-17] MEDS ORDERED: FLU VACC QS2021-22(6MOS UP)/PF 60 MCG/0.5 ML SYRINGE IM ONE (09:00)
[2021-08-17] MEDS ORDERED: pneumococcal 23-VAL P-sac vacc 25 mcg/0.5ml vial IMVAC ONE (09:00)
[2021-08-17 09:40] LABS: PLATELET ESTIMATE NORMAL; TOTAL CELLS COUNTED 100
[2021-08-17 10:00] VITALS: BP 94/57
[2021-08-17 10:09] LABS: D-DIMER < 0.19 MG/L FEU (0-0.50)
[2021-08-17] MEDS: normal saline 1000ml 1,000 ML IV SCH (10:59)
--- NOTE | 2021-08-17 11:10 | NUR ---
Page Sent PAGER ID: [phone] MESSAGE: DARRION [phone] RE: ROSA AFULKNER [phone] PT STATES HE IS DEPRESSED, NO ONE CARES ABOUT HIM. PER FLORENTINO FINANCIAL COUNSELOR, SHE THINKS HE MAY HAVE SOME SUICIDAL IDEATION. CAN I ORDER A PSYCH CONSULT FOR HIM PLEASE? THANK YOU!
[2021-08-17 14:00] VITALS: BP 104/58
--- NOTE | 2021-08-17 15:03 | NUR ---
Page Sent PAGER ID: [phone] MESSAGE: DARRION [phone] RE: ROSA FAULKNER [phone] PT IS REQUESTING A NICOTINE PATCH PLEASE. THANKS!
[2021-08-17] MEDS ORDERED: nicotine 14mg patch - 24hr TD ONE (15:25)
--- NOTE | 2021-08-17 15:48 | NUR ---
SPOKE WITH DR. ALEX, WHO PUT PATIENT ON 1798 HOLD AND ORDERED SITTER FOR SUICIDAL IDEATION. PT STATED TO SALES ADVISORY MANAGER FLORENTINO THAT HE WAS "DONE WITH IT ALL" AND WANTED TO "JUMP IN THE RIVER." PT ALSO STATED TO RN HE WAS DEPRESSED AND NO ONE CARED ABOUT HIM. AIDE SITTING WITH PT NOW.
[2021-08-17 18:00] VITALS: BP 95/63
--- NOTE | 2021-08-17 18:17 | NUR ---
Problems reprioritized. Patient report given, questions answered & plan of care reviewed with NORBERTO CASSIDY.
[2021-08-17] MEDS: ondansetron/PF 4mg/2ml inj IV PRN (20:11)
[2021-08-17 22:00] VITALS: BP 111/57
[2021-08-18 00:58] VITALS: BP 113/65
[2021-08-18] MEDS: ondansetron/PF 4mg/2ml inj IV PRN ×2 (04:38→14:59)
--- NOTE | 2021-08-18 06:24 | NUR ---
Problems reprioritized. Patient report given, questions answered & plan of care reviewed with NORBERTO SILVA.
[2021-08-18 06:56] LABS: BASOPHILS % (AUTO) 0.2 % (0-1); EOSINOPHILS % (AUTO) 0.1 % (0-6); HEMATOCRIT 28.4 % (42.0-52.0); HEMOGLOBIN 9.7 g/dl (14.0-17.9); LYMPHOCYTES # (AUTO) 0.9 X10'3 (1.1-4.8); MEAN CORPUSCULAR HEMOGLOBIN 32.6 PG (27.0-31.0); MEAN CORPUSCULAR HGB CONC 34.3 g/dL (33.0-36.5); MEAN PLATELET VOLUME 7.5 FL (7.4-10.4); MONOCYTES # (AUTO) 0.7 X10'3 (0-0.9); NEUTROPHILS # (AUTO) 5.7 X10'3 (1.8-7.7); NEUTROPHILS % (AUTO) 78.7 % (42-75); PLATELET COUNT 301 X10'3 (140-440); RED BLOOD COUNT 2.99 X10'6 (4.70-6.10); WHITE BLOOD COUNT 7.3 X10'3 (4.5-11.0)
[2021-08-18 07:33] LABS: D-DIMER < 0.19 MG/L FEU (0-0.50)
[2021-08-18 08:05] LABS: ALANINE AMINOTRANSFERASE 70 U/L (12-78); ALBUMIN 3.4 G/DL (3.4-5.0); ALBUMIN/GLOBULIN RATIO 0.9 (1.1-1.5); ALKALINE PHOSPHATASE 48 IU/L (46-116); ANION GAP 10 (8-16); ASPARTATE AMINO TRANSFERASE 46 U/L (10-37); BILIRUBIN,TOTAL 0.5 MG/DL (0.1-1.0); BLOOD UREA NITROGEN 18 MG/DL (7-18); BUN/CREATININE RATIO 16.7 (5.4-32.0); C-REACTIVE PROTEIN 3.07 MG/DL (0.0-0.5); CHLORIDE 99 MMOL/L (99-107); CREATININE 1.08 MG/DL (0.60-1.10); GLUCOSE 126 MG/DL (70-104); LACTATE DEHYDROGENASE 641 U/L (85-227); MAGNESIUM 2.2 MG/DL (1.5-2.4); PHOSPHORUS 4.3 MG/DL (2.3-4.5); POTASSIUM 4.2 MMOL/L (3.5-5.1); SODIUM 136 MMOL/L (135-145); TOTAL CARBON DIOXIDE 27.1 MMOL/L (24-32); TOTAL PROTEIN 7.4 G/DL (6.4-8.2); eGFR 71 ML/MIN
[2021-08-18] MEDS: dexamethasone 6 MG in NS 50ml IV soln IV SCH ×2 (09:01→19:23)
[2021-08-18] MEDS: nicotine 14mg patch - 24hr TD SCH (09:01)
[2021-08-18] MEDS: docusate sod 100mg capsule PO SCH ×2 (09:01→19:23)
[2021-08-18] MEDS: heparin, porcine 5000 units/ml vial SQ SCH ×2 (09:02→19:23)
[2021-08-18] MEDS: levoTHYROXINE 75mcg tablet PO SCH (09:09)
[2021-08-18 09:19] LABS: TOTAL CELLS COUNTED 100
[2021-08-18 09:20] LABS: LARGE PLATELETS FEW; PLATELET ESTIMATE NORMAL; POLYCHROMASIA FEW
--- NOTE | 2021-08-18 10:24 | NUR ---
Initial: Pt admit DX COVID-19 PNA, respiratory failure, hypothyroidism, homelessness, and SI on 1798 hold w/ sitter per EMR. PO ~100% avg heart healthy/mechanical soft diet meeting estimated needs. Noted pt hx "pre-diabetes" A1C 6.7 this admit and Glu 115-126mg/dl on dexamethasone. RD d/w RN regarding official DM DX by MD if deemed appropriate. DM diet ed not appropriate given PO ~100% not on carb controlled restriction, receiving steroids, and Glu within acceptable ranges this admit. LBM 08/17 receiving routine colace. No nutrition intervention at this time. Will continue to monitor. Rec: 1. continue heart healthy/mechanical soft diet per MD 2. routine bowel care 3. scaled wt this admit; subsequent weekly wts 4. A1C 6.7 w/ no hx DM; would benefit from DM DX if deemed appropriate by MD this admit. Glu within acceptable ranges receiving steroids, not on carb controlled restriction, and PO ~100% meals Addendum: 08/18/21 at [address] Amended: Links added.
[2021-08-18] MEDS: K and/or MAG REPLACEMENT MC SCH ×2 (10:46→20:00)
[2021-08-18 10:47] VITALS: BP 96/58
[2021-08-18 14:00] VITALS: BP 90/46
--- NOTE | 2021-08-18 16:43 | NUR ---
I spoke with [facility] on the phone. She said that she spoke with Sara social media executive and said that they aren't needing to place the patient on a hold and he doesn't meet the criteria for it. She said social media executive will try to place him in housing somewhere. I spoke with Dr. Alejo then, and he said we can DC the sitter and hold.
[2021-08-18 18:00] VITALS: BP 92/41
[2021-08-18 22:00] VITALS: BP 99/43
[2021-08-18] MEDS: HYDROcodone/acetaminophen 10/325mg tab PO PRN (22:47)
[2021-08-19 02:00] VITALS: BP 98/53
--- NOTE | 2021-08-19 06:20 | NUR ---
Problems reprioritized. Patient report given, questions answered & plan of care reviewed with jacobo Samaniego.
[2021-08-19 07:00] VITALS: BP 109/59
[2021-08-19 07:23] LABS: BASOPHILS % (AUTO) 0.3 % (0-1); EOSINOPHILS % (AUTO) 0.1 % (0-6); HEMATOCRIT 26.9 % (42.0-52.0); HEMOGLOBIN 9.2 g/dl (14.0-17.9); LYMPHOCYTES # (AUTO) 0.8 X10'3 (1.1-4.8); LYMPHOCYTES % (AUTO) 10.2 % (21-51); MEAN CORPUSCULAR HEMOGLOBIN 32.6 PG (27.0-31.0); MEAN CORPUSCULAR HGB CONC 34.1 g/dL (33.0-36.5); MEAN CORPUSCULAR VOLUME 95.5 FL (78-98); MEAN PLATELET VOLUME 8.3 FL (7.4-10.4); MONOCYTES # (AUTO) 0.5 X10'3 (0-0.9); MONOCYTES % (AUTO) 5.8 % (2-12); NEUTROPHILS # (AUTO) 6.9 X10'3 (1.8-7.7); NEUTROPHILS % (AUTO) 83.6 % (42-75); PLATELET COUNT 313 X10'3 (140-440); RED BLOOD COUNT 2.81 X10'6 (4.70-6.10); RED CELL DISTRIBUTION WIDTH 14.4 % (11.5-14.5); WHITE BLOOD COUNT 8.3 X10'3 (4.5-11.0)
[2021-08-19] MEDS: docusate sod 100mg capsule PO SCH ×2 (08:00→19:40)
[2021-08-19 08:05] LABS: D-DIMER < 0.19 MG/L FEU (0-0.50)
[2021-08-19 08:29] LABS: ALANINE AMINOTRANSFERASE 67 U/L (12-78); ALBUMIN 3.3 G/DL (3.4-5.0); ALBUMIN/GLOBULIN RATIO 0.8 (1.1-1.5); ALKALINE PHOSPHATASE 48 IU/L (46-116); ANION GAP 8 (8-16); ASPARTATE AMINO TRANSFERASE 41 U/L (10-37); BILIRUBIN,TOTAL 0.3 MG/DL (0.1-1.0); BLOOD UREA NITROGEN 19 MG/DL (7-18); BUN/CREATININE RATIO 16.1 (5.4-32.0); C-REACTIVE PROTEIN 2.16 MG/DL (0.0-0.5); CALCIUM 8.6 MG/DL (8.5-10.1); CHLORIDE 98 MMOL/L (99-107); CREATININE 1.18 MG/DL (0.60-1.10); GLUCOSE 134 MG/DL (70-104); LACTATE DEHYDROGENASE 568 U/L (85-227); MAGNESIUM 2.2 MG/DL (1.5-2.4); POTASSIUM 3.9 MMOL/L (3.5-5.1); SODIUM 134 MMOL/L (135-145); TOTAL CARBON DIOXIDE 27.6 MMOL/L (24-32); TOTAL PROTEIN 7.2 G/DL (6.4-8.2); eGFR 64 ML/MIN
[2021-08-19] MEDS: levoTHYROXINE 75mcg tablet PO SCH (09:37)
[2021-08-19] MEDS: heparin, porcine 5000 units/ml vial SQ SCH ×2 (09:38→19:39)
[2021-08-19] MEDS: nicotine 14mg patch - 24hr TD SCH (09:52)
[2021-08-19] MEDS: dexamethasone 6 MG in NS 50ml IV soln IV SCH ×2 (09:52→19:39)
[2021-08-19 10:00] VITALS: BP 90/60
[2021-08-19] MEDS: K and/or MAG REPLACEMENT MC SCH ×2 (11:00→19:40)
[2021-08-19 11:24] LABS: PLATELET ESTIMATE NORMAL; TOTAL CELLS COUNTED 100
[2021-08-19] MEDS ORDERED: PRED10TA23 PO ×2 (13:28)
[2021-08-19] MEDS ORDERED: ALBU8.5H17 INH (13:28)
[2021-08-19] MEDS ORDERED: LEVO75TA7 PO (13:28)
[2021-08-19 14:00] VITALS: BP 112/63
[2021-08-19] MEDS: normal saline 1000ml 1,000 ML IV SCH (17:10)
[2021-08-19] MEDS: HYDROcodone/acetaminophen 5mg/325mg tablet PO PRN (17:31)
[2021-08-19 18:00] VITALS: BP 87/50
--- NOTE | 2021-08-19 18:38 | NUR ---
Patient in room ORTHO 4024. I have received report from Gold THORNTON and had the opportunity to ask questions and assume patient care.
[2021-08-19 22:00] VITALS: BP 97/60
[2021-08-20 02:00] VITALS: BP 114/64
--- NOTE | 2021-08-20 03:00 | NUR ---
I have reviewed and agree with all interventions, assessments performed and documented by Fanny.
--- NOTE | 2021-08-20 06:25 | NUR ---
Problems reprioritized. Patient report given, questions answered & plan of care reviewed with Gold THORNTON.
[2021-08-20] MEDS: nicotine 14mg patch - 24hr TD SCH (08:02)
[2021-08-20] MEDS: heparin, porcine 5000 units/ml vial SQ SCH ×2 (08:02→20:04)
[2021-08-20] MEDS: docusate sod 100mg capsule PO SCH ×2 (08:02→20:03)
[2021-08-20] MEDS: levoTHYROXINE 75mcg tablet PO SCH (08:03)
[2021-08-20] MEDS: dexamethasone 6 MG in NS 50ml IV soln IV SCH ×2 (08:03→20:03)
[2021-08-20 09:31] LABS: BASOPHILS % (AUTO) 0.5 % (0-1); EOSINOPHILS % (AUTO) 0.1 % (0-6); HEMATOCRIT 28.7 % (42.0-52.0); HEMOGLOBIN 10.1 g/dl (14.0-17.9); LYMPHOCYTES # (AUTO) 1.1 X10'3 (1.1-4.8); LYMPHOCYTES % (AUTO) 11.6 % (21-51); MEAN CORPUSCULAR HGB CONC 35.2 g/dL (33.0-36.5); MEAN CORPUSCULAR VOLUME 93.6 FL (78-98); MEAN PLATELET VOLUME 7.6 FL (7.4-10.4); MONOCYTES # (AUTO) 0.4 X10'3 (0-0.9); MONOCYTES % (AUTO) 3.9 % (2-12); NEUTROPHILS % (AUTO) 83.9 % (42-75); PLATELET COUNT 361 X10'3 (140-440); RED BLOOD COUNT 3.06 X10'6 (4.70-6.10); RED CELL DISTRIBUTION WIDTH 14.1 % (11.5-14.5); WHITE BLOOD COUNT 9.6 X10'3 (4.5-11.0)
[2021-08-20 09:45] LABS: D-DIMER < 0.19 MG/L FEU (0-0.50)
[2021-08-20 09:52] LABS: ALANINE AMINOTRANSFERASE 61 U/L (12-78); ALBUMIN 3.4 G/DL (3.4-5.0); ALBUMIN/GLOBULIN RATIO 0.8 (1.1-1.5); ALKALINE PHOSPHATASE 155 IU/L (46-116); ANION GAP 11 (8-16); ASPARTATE AMINO TRANSFERASE 27 U/L (10-37); BILIRUBIN,TOTAL 0.3 MG/DL (0.1-1.0); BLOOD UREA NITROGEN 21 MG/DL (7-18); BUN/CREATININE RATIO 19.8 (5.4-32.0); C-REACTIVE PROTEIN 1.59 MG/DL (0.0-0.5); CALCIUM 8.8 MG/DL (8.5-10.1); CHLORIDE 98 MMOL/L (99-107); CREATININE 1.06 MG/DL (0.60-1.10); GLUCOSE 117 MG/DL (70-104); LACTATE DEHYDROGENASE 529 U/L (85-227); MAGNESIUM 2.2 MG/DL (1.5-2.4); PHOSPHORUS 3.6 MG/DL (2.3-4.5); POTASSIUM 3.7 MMOL/L (3.5-5.1); SODIUM 137 MMOL/L (135-145); TOTAL CARBON DIOXIDE 27.9 MMOL/L (24-32); TOTAL PROTEIN 7.6 G/DL (6.4-8.2); eGFR 72 ML/MIN
[2021-08-20 10:00] VITALS: BP 111/62
[2021-08-20 10:07] LABS: PLATELET ESTIMATE NORMAL; POLYCHROMASIA FEW; TOTAL CELLS COUNTED 100
[2021-08-20] MEDS: K and/or MAG REPLACEMENT MC SCH ×2 (12:00→20:00)
[2021-08-20] MEDS ORDERED: LORazepam 2 mg/ml vial IV ONE (16:10)
[2021-08-20 18:00] VITALS: BP 94/53
--- NOTE | 2021-08-20 18:17 | NUR ---
Patient in room ORTHO 4024. I have received report from Gold THORNTON and had the opportunity to ask questions and assume patient care.
[2021-08-20 22:00] VITALS: BP 100/52
--- NOTE | 2021-08-21 00:48 | NUR ---
Patient refusing to wear oxygen, O2 saturation between 88-90% RA. Patient becoming agitated with nursing saying he does not have covid and does not need the oxygen. Tried to educate the patient but refusing the oxygen still. Patient alert and orientated x4 and in no respiratory distress at this time.
[2021-08-21 02:00] VITALS: BP 94/52
--- NOTE | 2021-08-21 06:37 | NUR ---
Problems reprioritized. Patient report given, questions answered & plan of care reviewed with Gold THORNTON.
[2021-08-21] MEDS: dexamethasone 6 MG in NS 50ml IV soln IV SCH ×2 (07:52→19:21)
[2021-08-21] MEDS: nicotine 14mg patch - 24hr TD SCH (07:53)
[2021-08-21] MEDS: heparin, porcine 5000 units/ml vial SQ SCH ×2 (07:53→19:21)
[2021-08-21] MEDS: docusate sod 100mg capsule PO SCH ×2 (07:54→19:21)
[2021-08-21] MEDS: levoTHYROXINE 75mcg tablet PO SCH (07:54)
[2021-08-21 10:00] VITALS: BP 104/62
[2021-08-21] MEDS: K and/or MAG REPLACEMENT MC SCH ×2 (10:00→19:21)
[2021-08-21] MEDS: HYDROcodone/acetaminophen 5mg/325mg tablet PO PRN (12:18)
[2021-08-21] MEDS: normal saline 1000ml 1,000 ML IV SCH (17:00)
[2021-08-21 18:00] VITALS: BP 104/58
--- NOTE | 2021-08-21 18:28 | NUR ---
Patient in room ORTHO 4024. I have received report from Gold THORNTON and had the opportunity to ask questions and assume patient care.
[2021-08-21 22:00] VITALS: BP 95/53
[2021-08-21] MEDS: HYDROcodone/acetaminophen 10/325mg tab PO PRN (23:56)
[2021-08-22 02:00] VITALS: BP 99/47
[2021-08-22 06:00] VITALS: BP 108/70
--- NOTE | 2021-08-22 06:32 | NUR ---
Problems reprioritized. Patient report given, questions answered & plan of care reviewed with Gold THORNTON.
[2021-08-22] MEDS: nicotine 14mg patch - 24hr TD SCH (07:47)
[2021-08-22] MEDS: heparin, porcine 5000 units/ml vial SQ SCH ×2 (07:47→20:31)
[2021-08-22] MEDS: levoTHYROXINE 75mcg tablet PO SCH (07:47)
[2021-08-22] MEDS: docusate sod 100mg capsule PO SCH ×2 (07:47→20:00)
[2021-08-22] MEDS: dexamethasone 6 MG in NS 50ml IV soln IV SCH ×2 (07:51→20:37)
[2021-08-22 10:00] VITALS: BP 94/51
[2021-08-22] MEDS: K and/or MAG REPLACEMENT MC SCH ×2 (11:03→20:00)
[2021-08-22] MEDS: HYDROcodone/acetaminophen 5mg/325mg tablet PO PRN ×2 (13:38→22:27)
[2021-08-22 18:00] VITALS: BP 98/53
--- NOTE | 2021-08-22 18:30 | NUR ---
Patient in room ORTHO 4024. I have received report from NORBERTO Almazan and had the opportunity to ask questions and assume patient care. Patient laying in bed watching TV, in now obvious distress. I will continue to monitor.
--- NOTE | 2021-08-22 21:04 | NUR ---
When I entered the patient's room I noticed he had taken his Tele Monitor off, I asked him why he did this. He said " I don't need a tracker anymore". I explained that it was monitoring his heart, but he refused to let me put it back on, I will call Tele and let the MD know.
[2021-08-22 22:00] VITALS: BP 110/58
[2021-08-23 05:00] VITALS: BP 108/66
--- NOTE | 2021-08-23 06:09 | NUR ---
Problems reprioritized. Patient report given, questions answered & plan of care reviewed with NORBERTO Almazan.
[2021-08-23] MEDS: heparin, porcine 5000 units/ml vial SQ SCH ×2 (07:24→21:00)
[2021-08-23] MEDS: levoTHYROXINE 75mcg tablet PO SCH (07:25)
[2021-08-23] MEDS: docusate sod 100mg capsule PO SCH ×2 (07:25→21:00)
[2021-08-23] MEDS: dexamethasone 6 MG in NS 50ml IV soln IV SCH ×2 (07:25→21:00)
[2021-08-23] MEDS: nicotine 14mg patch - 24hr TD SCH (07:26)
[2021-08-23] MEDS: HYDROcodone/acetaminophen 5mg/325mg tablet PO PRN (07:39)
[2021-08-23] MEDS ORDERED: magnesium citrate 296ml oral solution PO ONE (11:00)
[2021-08-23] MEDS: K and/or MAG REPLACEMENT MC SCH ×2 (11:00→20:00)
[2021-08-23 11:13] VITALS: BP 108/68
[2021-08-23] MEDS: normal saline 1000ml 1,000 ML IV SCH (15:40)
--- NOTE | 2021-08-23 18:30 | NUR ---
Assumed care of pt at this time report from Gold.
--- NOTE | 2021-08-23 21:00 | NUR ---
meds scanned but did not save.
[2021-08-23 22:00] VITALS: BP 98/47
[2021-08-24 02:00] VITALS: BP 104/62
--- NOTE | 2021-08-24 06:38 | NUR ---
Report to Loraine Frias.
[2021-08-24] MEDS: dexamethasone 6 MG in NS 50ml IV soln IV SCH ×3 (08:00→20:00)
[2021-08-24] MEDS: K and/or MAG REPLACEMENT MC SCH ×2 (08:00→18:24)
[2021-08-24] MEDS: heparin, porcine 5000 units/ml vial SQ SCH ×3 (08:00→20:00)
[2021-08-24] MEDS: levoTHYROXINE 75mcg tablet PO SCH (09:08)
[2021-08-24] MEDS: docusate sod 100mg capsule PO SCH ×2 (09:08→20:00)
[2021-08-24] MEDS: nicotine 14mg patch - 24hr TD SCH (09:08)
[2021-08-24 10:00] VITALS: BP 105/57
--- NOTE | 2021-08-24 11:22 | NUR ---
Reassessment: Pt PO ~100% avg meals meeting needs. RD d/w RN regarding A1C 6.7 w/ hx "pre-diabetes" though still unsure if pt aware of DM DX this admit. RN reports unsure if pt aware of DM at this time. Noted Glu WNL this admit on steroids w/ 100% PO without glycemic protocol or carb controlled diet. No real nutrition ed indicated if pt aware of DM DX given aforementioned data this admit. LBM 08/17 receiving routine colace BID and s/p mag citrate yesterday per EMR. Will continue to monitor. Rec: 1. continue heart healthy/mechanical soft diet per MD 2. routine bowel care; consider additional w/ 7 days constipation 3. scaled wt this admit; subsequent weekly wts 4. A1C 6.7 w/ no hx DM; would benefit from DM DX if deemed appropriate by MD this admit. No real nutrition ed indicated if pt aware of DM DX given aforementioned data this admit. Addendum: 08/24/21 at [address] Amended: Links added.
[2021-08-24 14:00] VITALS: BP 106/56
[2021-08-24 18:00] VITALS: BP 94/52
[2021-08-24 22:00] VITALS: BP 98/49
[2021-08-25 02:00] VITALS: BP 107/59
--- NOTE | 2021-08-25 06:07 | NUR ---
Problems reprioritized. Patient report given, questions answered & plan of care reviewed with professor of psychology Liz.
[2021-08-25 06:10] VITALS: BP 99/58
--- NOTE | 2021-08-25 06:30 | NUR ---
received patient report from Silvia THORNTON
[2021-08-25] MEDS: nicotine 14mg patch - 24hr TD SCH (07:51)
[2021-08-25] MEDS: levoTHYROXINE 75mcg tablet PO SCH (07:51)
[2021-08-25] MEDS: docusate sod 100mg capsule PO SCH (07:51)
[2021-08-25] MEDS: heparin, porcine 5000 units/ml vial SQ SCH (08:00)
[2021-08-25] MEDS: dexamethasone 6 MG in NS 50ml IV soln IV SCH (08:00)
[2021-08-25] MEDS: K and/or MAG REPLACEMENT MC SCH (09:01)
[2021-08-25 10:00] VITALS: BP 99/63
--- NOTE | 2021-08-25 12:10 | NUR ---
F/u 08/25: KVNG d/w RN regarding DM DX; RN reports pt pending discharge today unaware of DM DX at this time. No DM diet education indicated currently w/ Glu WNL, not requiring glycemic protocol, on steroids, and not on DM diet eating ~100%. Addendum: 08/25/21 at [address] Amended: Links added.
[2021-08-25] MEDS ORDERED: PRED10TA23 PO (12:23)
[2021-08-25] MEDS: HYDROcodone/acetaminophen 10/325mg tab PO PRN (13:07)
== END 2021-08-25 14:25 | disposition home or self-care (01) | DRG 137 ==
LOC: ER 11:41 → ED HOLD 15:40 → EDBEDREQ 08-16 18:26 → ORTHO 4S 08-16 19:30
PROVIDERS: ADMIT Family Medicine; ATTEND Family Medicine
PROC: XW033E5 Introduction of Remdesivir Anti-infective into Peripheral Vein, Percutaneous Approach, New Technology Group 5 (ICD-10-PCS; principal; 2021-08-15)
DX: U07.1 COVID-19 (principal); J96.21 Acute and chronic respiratory failure with hypoxia; J12.82 Pneumonia due to coronavirus disease 2019; J44.0 Chronic obstructive pulmonary disease with (acute) lower respiratory infection; J44.1 Chronic obstructive pulmonary disease with (acute) exacerbation; E78.00 Pure hypercholesterolemia, unspecified; F32.A Depression, unspecified; G89.29 Other chronic pain; M54.9 Dorsalgia, unspecified; F41.9 Anxiety disorder, unspecified; E03.9 Hypothyroidism, unspecified; F17.200 Nicotine dependence, unspecified, uncomplicated; F15.10 Other stimulant abuse, uncomplicated; R45.851 Suicidal ideations; K59.00 Constipation, unspecified; Z88.0 Allergy status to penicillin; Z79.899 Other long term (current) drug therapy; Z88.1 Allergy status to other antibiotic agents; Z59.00 Homelessness unspecified; Z79.51 Long term (current) use of inhaled steroids; Z71.6 Tobacco abuse counseling; Z71.51 Drug abuse counseling and surveillance of drug abuser; Z91.14 Patient's other noncompliance with medication regimen
CPT/HCPCS: 36415; 70551; 71045; 80053; 80061; 80305; 80320; 81001; 82140; 83036; 83605; 83615; 83735; 83880; 84100; 84145; 84439; 84443; 85007; 85025; 85379; 86140; 87081; 90732; 93005; 94760; 96365; 96367; 96375; 97116; 97161; 97530; 99291; G0378; J0456; J0696; J1100; J1644; J2060; J2405; J7030

== ENCOUNTER 2021-10-26 11:53 | Emergency (ER) | payer MEDICAID ==
[~2021-10-26] VITALS: Ht 172.7 cm; Wt 79.5 kg
[~2021-10-26 11:53] MED LIST changes: +ALBU8.5H17 INH; +PRED10TA23 PO
[2021-10-26 12:20] VITALS: BP 119/68
[2021-10-26] MEDS ORDERED: bacitracin 15gm ointment TP ONE (14:05)
[2021-10-26] MEDS ORDERED: TETanus/Pertussis (Acell)/Diphther VAC/PF (Tdap-Adult) 0.5ml syringe IMVAC ONE (14:05)
[2021-10-26] MEDS ORDERED: LIDOcaine 1% W/epiNEPHrine 1:200,000 10ml vial IJ ONE (14:05)
[2021-10-26] MEDS ORDERED: LIDOcaine 1% W/epiNEPHrine 1:100,000 20ml vial IJ ONE (14:10)
[2021-10-26] MEDS ORDERED: LIDOcaine/epinephrine/tetracaine TOPICAL sol 3 ML syringe TOP ONE (14:35)
== END 2021-10-26 15:50 | disposition home or self-care (01) ==
LOC: ER 11:54
DX: S61.412A Laceration without foreign body of left hand, initial encounter (principal); E78.00 Pure hypercholesterolemia, unspecified; G89.29 Other chronic pain; F32.9 Major depressive disorder, single episode, unspecified; E05.90 Thyrotoxicosis, unspecified without thyrotoxic crisis or storm; Z98.890 Other specified postprocedural states; Z59.00 Homelessness unspecified; Z88.0 Allergy status to penicillin; Z88.1 Allergy status to other antibiotic agents; Z79.899 Other long term (current) drug therapy; W19.XXXA Unspecified fall, initial encounter; Y93.01 Activity, walking, marching and hiking; Y92.89 Other specified places as the place of occurrence of the external cause; Y99.8 Other external cause status
CPT/HCPCS: 12001; 73130; 90715; 99283; J3490

== ENCOUNTER 2021-11-08 23:51 | Emergency (ER) | payer MEDICAID ==
[~2021-11-08] VITALS: Ht 167.6 cm; Wt 86.4 kg
[2021-11-09] MEDS ORDERED: CLIN300C63 PO (04:44)
[2021-11-09] MEDS ORDERED: clindamycin 150mg capsule PO ONE (04:45)
[2021-11-09 04:48] VITALS: BP 123/74
== END 2021-11-09 04:55 | disposition home or self-care (01) ==
LOC: ER 23:52
DX: L03.116 Cellulitis of left lower limb (principal); L03.115 Cellulitis of right lower limb; E78.00 Pure hypercholesterolemia, unspecified; G89.29 Other chronic pain; Z88.0 Allergy status to penicillin; Z88.1 Allergy status to other antibiotic agents; Z79.899 Other long term (current) drug therapy; Z59.00 Homelessness unspecified
CPT/HCPCS: 99283

== ENCOUNTER 2021-11-16 18:51 | Emergency (ER) | payer MEDICAID ==
[~2021-11-16] VITALS: Ht 172.7 cm; Wt 81.8 kg
[~2021-11-16 18:51] MED LIST changes: +CLIN300C63 PO
[2021-11-16 18:53] VITALS: BP 128/77
[2021-11-16] MEDS ORDERED: DOXYCYCLINE 100MG CAPSULE PO STA (21:33)
[2021-11-16] MEDS ORDERED: DOXY100C76 PO (21:54)
== END 2021-11-16 21:58 | disposition home or self-care (01) ==
LOC: ER 18:51
DX: B35.6 Tinea cruris (principal); L03.116 Cellulitis of left lower limb; L98.9 Disorder of the skin and subcutaneous tissue, unspecified; F15.10 Other stimulant abuse, uncomplicated; E78.00 Pure hypercholesterolemia, unspecified; E05.90 Thyrotoxicosis, unspecified without thyrotoxic crisis or storm; G89.29 Other chronic pain; M54.9 Dorsalgia, unspecified; Z59.00 Homelessness unspecified; Z88.0 Allergy status to penicillin; Z79.899 Other long term (current) drug therapy
CPT/HCPCS: 99283

== ENCOUNTER 2021-11-29 08:59 | Emergency (ER) | payer MEDICAID ==
[~2021-11-29] VITALS: Ht 172.7 cm; Wt 90.0 kg
[~2021-11-29 08:59] MED LIST changes: -CLIN300C63 PO
[2021-11-29] MEDS ORDERED: ibuprofen tablet 400 MG TABLET PO ONE (10:25)
[2021-11-29 10:32] LABS: BASOPHILS # (AUTO) 0.1 X10'3 (0-0.2); BASOPHILS % (AUTO) 0.8 % (0-1); EOSINOPHILS # (AUTO) 0.1 X10'3 (0-0.9); EOSINOPHILS % (AUTO) 0.7 % (0-6); HEMATOCRIT 34.6 % (42.0-52.0); HEMOGLOBIN 11.6 g/dl (14.0-17.9); LYMPHOCYTES # (AUTO) 1.5 X10'3 (1.1-4.8); LYMPHOCYTES % (AUTO) 18.3 % (21-51); MEAN CORPUSCULAR HEMOGLOBIN 30.6 PG (27.0-31.0); MEAN CORPUSCULAR HGB CONC 33.6 g/dL (33.0-36.5); MEAN CORPUSCULAR VOLUME 90.9 FL (78-98); MEAN PLATELET VOLUME 7.3 FL (7.4-10.4); MONOCYTES # (AUTO) 0.7 X10'3 (0-0.9); MONOCYTES % (AUTO) 8.7 % (2-12); NEUTROPHILS % (AUTO) 71.5 % (42-75); PLATELET COUNT 336 X10'3 (140-440); RED BLOOD COUNT 3.81 X10'6 (4.70-6.10); RED CELL DISTRIBUTION WIDTH 15.6 % (11.5-14.5); WHITE BLOOD COUNT 8.4 X10'3 (4.5-11.0)
[2021-11-29 10:39] LABS: ALANINE AMINOTRANSFERASE 37 U/L (12-78); ALBUMIN 3.7 G/DL (3.4-5.0); ALBUMIN/GLOBULIN RATIO 0.8 (1.1-1.5); ALKALINE PHOSPHATASE 57 IU/L (46-116); ANION GAP 7 (8-16); ASPARTATE AMINO TRANSFERASE 31 U/L (10-37); BILIRUBIN,TOTAL 0.2 MG/DL (0.1-1.0); BLOOD UREA NITROGEN 17 MG/DL (7-18); BUN/CREATININE RATIO 19.3 (5.4-32.0); CALCIUM 9.1 MG/DL (8.5-10.1); CHLORIDE 100 MMOL/L (99-107); CREATININE 0.88 MG/DL (0.60-1.10); GLUCOSE 116 MG/DL (70-104); POTASSIUM 3.7 MMOL/L (3.5-5.1); SODIUM 136 MMOL/L (135-145); TOTAL CARBON DIOXIDE 28.6 MMOL/L (24-32); TOTAL PROTEIN 8.2 G/DL (6.4-8.2); eGFR 89 ML/MIN
[2021-11-29 10:42] LABS: LIPASE 135 U/L (73-393)
[2021-11-29 15:01] VITALS: BP 121/79
== END 2021-11-29 15:03 | disposition home or self-care (01) ==
LOC: ER 08:59
DX: R07.89 Other chest pain (principal); R10.13 Epigastric pain; E78.00 Pure hypercholesterolemia, unspecified; E03.9 Hypothyroidism, unspecified; G89.29 Other chronic pain; F32.9 Major depressive disorder, single episode, unspecified; F15.90 Other stimulant use, unspecified, uncomplicated; Z98.890 Other specified postprocedural states; Z72.89 Other problems related to lifestyle; Z59.00 Homelessness unspecified; Z88.0 Allergy status to penicillin; Z88.1 Allergy status to other antibiotic agents; Z79.899 Other long term (current) drug therapy
CPT/HCPCS: 36415; 71045; 71046; 80053; 83690; 84484; 85025; 93005; 99285

== ENCOUNTER 2022-01-27 12:48 | Emergency (ER) | payer MEDICAID ==
[~2022-01-27] VITALS: Ht 172.7 cm; Wt 8.6 kg
[2022-01-27] MEDS ORDERED: normal saline 1000ML IV soln IVB ONE (14:45)
[2022-01-27] MEDS ORDERED: meclizine 12.5mg tablet PO ONE (14:45)
[2022-01-27] MEDS ORDERED: metoclopramide 5 mg/ml inj IV ONE (14:45)
[2022-01-27] MEDS ORDERED: methylPREDNISolone sod succ 125mg/2ml vial IV ONE (14:45)
[2022-01-27] MEDS ORDERED: diazepam inj 5 MG/ML inj. IV ONE (14:45)
[2022-01-27] MEDS ORDERED: ONDA4TAB12 PO (15:54)
[2022-01-27] MEDS ORDERED: MECL-159 PO (15:54)
[2022-01-27 19:59] VITALS: BP 108/67
== END 2022-01-27 20:15 | disposition home or self-care (01) ==
LOC: ER 12:49
DX: R42 Dizziness and giddiness (principal); R21 Rash and other nonspecific skin eruption; L29.9 Pruritus, unspecified; R68.2 Dry mouth, unspecified; E78.00 Pure hypercholesterolemia, unspecified; Z88.0 Allergy status to penicillin; Z79.899 Other long term (current) drug therapy
CPT/HCPCS: 96361; 96374; 96375; 99285; J2765; J2930; J7030; J8597

== ENCOUNTER 2022-07-18 07:31 | Inpatient (IN) | payer MEDICAID ==
[~2022-07-18] VITALS: Ht 172.7 cm; Wt 86.4 kg
[~2022-07-18 07:31] MED LIST changes: +MECL-159 PO; +ONDA4TAB12 PO
--- NOTE | 2022-07-18 07:41 | NUR ---
pain: 8/10, 108/74, 93 RA, 67 HEART RATE, 20 RR.
[2022-07-18] MEDS ORDERED: ketorolac trometh. 30mg/ml inj. IV ONE (08:00)
[2022-07-18 08:49] LABS: BASOPHILS # (AUTO) 0.1 X10'3 (0-0.2); EOSINOPHILS # (AUTO) 0.2 X10'3 (0-0.9); EOSINOPHILS % (AUTO) 3.9 % (0-6); HEMATOCRIT 40.7 % (42.0-52.0); HEMOGLOBIN 13.4 g/dl (14.0-17.9); LYMPHOCYTES # (AUTO) 1.4 X10'3 (1.1-4.8); LYMPHOCYTES % (AUTO) 25.3 % (21-51); MEAN CORPUSCULAR HEMOGLOBIN 31.8 PG (27.0-31.0); MEAN CORPUSCULAR VOLUME 96.4 FL (78-98); MEAN PLATELET VOLUME 8.5 FL (7.4-10.4); MONOCYTES # (AUTO) 0.4 X10'3 (0-0.9); MONOCYTES % (AUTO) 7.1 % (2-12); NEUTROPHILS # (AUTO) 3.5 X10'3 (1.8-7.7); NEUTROPHILS % (AUTO) 62.7 % (42-75); PLATELET COUNT 199 X10'3 (140-440); RED BLOOD COUNT 4.22 X10'6 (4.70-6.10); RED CELL DISTRIBUTION WIDTH 15.2 % (11.5-14.5); WHITE BLOOD COUNT 5.5 X10'3 (4.5-11.0)
[2022-07-18 09:07] LABS: ALANINE AMINOTRANSFERASE 83 U/L (12-78); ALKALINE PHOSPHATASE 33 IU/L (46-116); ASPARTATE AMINO TRANSFERASE 132 U/L (10-37); BILIRUBIN,TOTAL 0.2 MG/DL (0.1-1.0); BLOOD UREA NITROGEN 14 MG/DL (7-18); GLUCOSE 93 MG/DL (70-104); SODIUM 137 MMOL/L (135-145); TOTAL CARBON DIOXIDE 26.8 MMOL/L (24-32); TOTAL PROTEIN 7.9 G/DL (6.4-8.2); eGFR 77 ML/MIN
[2022-07-18 09:15] LABS: MAGNESIUM 2.4 MG/DL (1.5-2.4)
--- NOTE | 2022-07-18 09:25 | NUR ---
sandra garcia given to pt at 0952 due to low temp. 94.6
[2022-07-18 09:40] LABS: ANION GAP 11 (8-16); CHLORIDE 99 MMOL/L (99-107); CREATINE KINASE 3098 U/L (39-308); POTASSIUM 3.9 MMOL/L (3.5-5.1)
[2022-07-18] MEDS ORDERED: normal saline 1000ml 1,000 ML IV ONE (10:10)
[2022-07-18] MEDS ORDERED: normal saline 1000ML IV soln IVB ONE (10:10)
[2022-07-18] MEDS ORDERED: magnesium 2GM in 50ml NS 50 ML IV PRN (10:50)
[2022-07-18] MEDS ORDERED: ondansetron/PF 4mg/2ml inj IV PRN (10:50)
[2022-07-18] MEDS ORDERED: magnesium 4gm in 100ml NS 100 ML IV PRN (10:50)
[2022-07-18] MEDS ORDERED: POTASSIUM BICARB 20meq eff tab 20 MEQ TABLET.EFF PO PRN ×2 (10:50)
[2022-07-18] MEDS ORDERED: magnesium Cl slow-release 64mg tablet PO PRN (10:50)
[2022-07-18] MEDS ORDERED: potassium CL 10mEq/100ml bag 100 ML IV PRN (10:50)
[2022-07-18] MEDS ORDERED: acetaminophen 325mg tablet PO PRN (10:50)
[2022-07-18 12:48] LABS: CLARITY,URINE CLEAR (Clear); COLOR,URINE YELLOW (Yellow); GLUCOSE, URINE NEGATIVE (Neg); KETONES,URINE NEGATIVE (Neg); LEUKOCYTE ESTERASE ,URINE NEGATIVE (Neg); NITRITES, URINE NEGATIVE (Neg); OCCULT BLOOD,URINE NEGATIVE (Neg); PROTEIN,URINE NEGATIVE (Neg); UROBILINOGEN,URINE 0.2 E.U/dL (0.2-1.0)
[2022-07-18 12:52] LABS: URINE AMPHETAMINE SCREEN POSITIVE (Neg); URINE BARBITUATE SCREEN NEGATIVE (Neg); URINE BENZODIAZEPINES SCREEN NEGATIVE (Neg); URINE CANNABINOID SCREEN NEGATIVE (Neg); URINE COCAINE SCREEN NEGATIVE (Neg); URINE METHADONE SCREEN NEGATIVE (Neg); URINE OPIATE SCREEN NEGATIVE (Neg); URINE PHENCYCLIDINE SCREEN NEGATIVE (Neg)
[2022-07-18 12:56] LABS: UA COLLECTION TYPE URINAL
[2022-07-18] MEDS ORDERED: LEVO75TA PO (14:14)
[2022-07-18] MEDS: acetaminophen 1,000mg/100ml IV 100 ML IV SCH ×2 (14:48→20:15)
[2022-07-18] MEDS: normal saline 1000ml 1,000 ML IV SCH ×2 (14:48→20:50)
--- NOTE | 2022-07-18 15:00 | NUR ---
TEMPERATURE 98.3. JAY HUGGER STOPPED AT THIS TIME. PATIENT CONSUMED REGULAR DIET AND RETAINED. IV FLUIDS INFUSING WELL.
[2022-07-18] MEDS: K and/or MAG REPLACEMENT MC SCH (20:00)
[2022-07-18 22:00] VITALS: BP 115/53
[2022-07-19 02:00] VITALS: BP 120/56
[2022-07-19] MEDS: acetaminophen 1,000mg/100ml IV 100 ML IV SCH ×2 (02:19→08:47)
[2022-07-19] MEDS: normal saline 1000ml 1,000 ML IV SCH ×2 (03:48→16:50)
[2022-07-19 06:00] VITALS: BP 107/66
--- NOTE | 2022-07-19 06:44 | NUR ---
Problems reprioritized. Patient report given, questions answered & plan of care reviewed with Fallon.
[2022-07-19 07:26] LABS: BASOPHILS # (AUTO) 0.1 X10'3 (0-0.2); BASOPHILS % (AUTO) 1.2 % (0-1); EOSINOPHILS # (AUTO) 0.3 X10'3 (0-0.9); HEMATOCRIT 35.3 % (42.0-52.0); HEMOGLOBIN 11.9 g/dl (14.0-17.9); LYMPHOCYTES # (AUTO) 1.6 X10'3 (1.1-4.8); LYMPHOCYTES % (AUTO) 32.5 % (21-51); MEAN CORPUSCULAR HEMOGLOBIN 31.7 PG (27.0-31.0); MEAN CORPUSCULAR HGB CONC 33.8 g/dL (33.0-36.5); MEAN CORPUSCULAR VOLUME 93.9 FL (78-98); MEAN PLATELET VOLUME 8.2 FL (7.4-10.4); MONOCYTES # (AUTO) 0.3 X10'3 (0-0.9); MONOCYTES % (AUTO) 6.8 % (2-12); NEUTROPHILS # (AUTO) 2.7 X10'3 (1.8-7.7); NEUTROPHILS % (AUTO) 53.5 % (42-75); PLATELET COUNT 195 X10'3 (140-440); RED BLOOD COUNT 3.76 X10'6 (4.70-6.10); RED CELL DISTRIBUTION WIDTH 15.1 % (11.5-14.5)
[2022-07-19 07:52] LABS: ALBUMIN 3.4 G/DL (3.4-5.0); ANION GAP 7 (8-16); BLOOD UREA NITROGEN 15 MG/DL (7-18); CALCIUM 8.4 MG/DL (8.5-10.1); CHLORIDE 104 MMOL/L (99-107); CREATININE 1.07 MG/DL (0.60-1.10); GLUCOSE 103 MG/DL (70-104); MAGNESIUM 1.8 MG/DL (1.5-2.4); POTASSIUM 3.7 MMOL/L (3.5-5.1); SODIUM 139 MMOL/L (135-145); TOTAL CARBON DIOXIDE 28.5 MMOL/L (24-32); eGFR 71 ML/MIN
[2022-07-19 07:55] LABS: CREATINE KINASE 2101 U/L (39-308)
[2022-07-19] MEDS: K and/or MAG REPLACEMENT MC SCH ×2 (08:00→20:00)
[2022-07-19 11:00] VITALS: BP 111/68
[2022-07-19] MEDS ORDERED: magnesium hydroxide 30ml (MOM) UD suspension PO PRN (11:55)
[2022-07-19] MEDS ORDERED: polyethylene glycol 3350 17gm powd pack PO PRN (11:55)
[2022-07-19] MEDS ORDERED: bisacodyl 10mg suppository rectal RC PRN (11:55)
[2022-07-19] MEDS ORDERED: normal saline 500ml IV soln 500 ML IV ONE (11:55)
--- NOTE | 2022-07-19 13:32 | NUR ---
Met with patient in regards to substance/alcohol use and to see if patient wanted resources for treatment options. Patient declined resources.
[2022-07-19 15:00] VITALS: BP 110/59
[2022-07-19 15:55] LABS: CREATINE KINASE 2124 U/L (39-308)
[2022-07-19 18:00] VITALS: BP 110/58
[2022-07-19] MEDS: docusate sod 100mg capsule PO SCH (20:00)
[2022-07-19 21:26] LABS: CREATINE KINASE 2235 U/L (39-308)
[2022-07-19 22:00] VITALS: BP 118/62
[2022-07-20] MEDS: levoTHYROXINE 75mcg tablet PO SCH ×2 (00:22→09:01)
[2022-07-20 02:00] VITALS: BP 104/67
[2022-07-20] MEDS: normal saline 1000ml 1,000 ML IV SCH (03:23)
[2022-07-20 06:00] VITALS: BP 107/69
[2022-07-20 06:26] LABS: BASOPHILS # (AUTO) 0.1 X10'3 (0-0.2); EOSINOPHILS # (AUTO) 0.2 X10'3 (0-0.9); HEMOGLOBIN 11.3 g/dl (14.0-17.9); LYMPHOCYTES # (AUTO) 1.6 X10'3 (1.1-4.8); LYMPHOCYTES % (AUTO) 34.9 % (21-51); MEAN CORPUSCULAR HGB CONC 34.4 g/dL (33.0-36.5); MONOCYTES # (AUTO) 0.3 X10'3 (0-0.9); NEUTROPHILS # (AUTO) 2.4 X10'3 (1.8-7.7); RED BLOOD COUNT 3.54 X10'6 (4.70-6.10); WHITE BLOOD COUNT 4.6 X10'3 (4.5-11.0)
[2022-07-20 06:28] LABS: BASOPHILS % (AUTO) 1.3 % (0-1); EOSINOPHILS % (AUTO) 5.1 % (0-6); MEAN PLATELET VOLUME 8.8 FL (7.4-10.4); MONOCYTES % (AUTO) 6.1 % (2-12); NEUTROPHILS % (AUTO) 52.6 % (42-75); PLATELET COUNT 197 X10'3 (140-440); RED CELL DISTRIBUTION WIDTH 14.6 % (11.5-14.5)
[2022-07-20 06:54] LABS: ALBUMIN 3.5 G/DL (3.4-5.0); ANION GAP 8 (8-16); BLOOD UREA NITROGEN 12 MG/DL (7-18); BUN/CREATININE RATIO 11.9 (5.4-32.0); CALCIUM 8.3 MG/DL (8.5-10.1); CHLORIDE 104 MMOL/L (99-107); CREATININE 1.01 MG/DL (0.60-1.10); GLUCOSE 107 MG/DL (70-104); MAGNESIUM 1.8 MG/DL (1.5-2.4); POTASSIUM 3.7 MMOL/L (3.5-5.1); SODIUM 139 MMOL/L (135-145); TOTAL CARBON DIOXIDE 26.7 MMOL/L (24-32); eGFR 76 ML/MIN
[2022-07-20] MEDS: docusate sod 100mg capsule PO SCH (08:00)
[2022-07-20] MEDS: K and/or MAG REPLACEMENT MC SCH (08:00)
[2022-07-20 08:28] LABS: CREATINE KINASE 2305 U/L (39-308)
[2022-07-20] MEDS ORDERED: normal saline 1000ml 1,000 ML IV ONE (10:55)
--- NOTE | 2022-07-20 11:52 | NUR ---
Spoke to MD Bass during rounds, plans for discharge today. Pt anxious wanting IV to be removed, PIV removed d/t pt threatening to self-remove. MD Bass orderd 1L NS bolus, paged questioning orders as it was not discussed during rounds and dc orders already in system. MD Bass on unit, no IV fluid intake documented on IV spreadsheet however pt had NS @100ml/hr infusing- 3 bags scanned on eMAR. MD Bass wanting IVF bolus to be given prior to dc. Pt refusing to get new IV inserted, educated on orders- still refusing. Paged MD Bass with update. Also spoke to weigher and charger Kevin regarding issue. Addendum: 07/20/22 at 1202 by Hailey Williamson RN MD Bass on unit, made aware of pt refusal of IVF bolus. encouraged oral fluid intake and ok's for discharge.
--- NOTE | 2022-07-20 12:30 | NUR ---
Pt discharged per MD Bass orders. PIV and telemonitor removed, pt in no signs of acute distress at time of discharge. Pt wheeled down to main entrance via WC with all belonings. Per MOISE Bruce, pt refused resources, only requesting cane which was provided.
== END 2022-07-20 12:38 | disposition home or self-care (01) | DRG 351 ==
LOC: ER 07:31 → ED HOLD 10:52 → UNDOADMOB 10:52 → PCU 3S 10:52 → ED HOLD 21:46 → PCU 3S 21:46 → OBSVTOIN 07-19 09:49 → INTOOBSV 07-19 09:49
PROVIDERS: ADMIT Internal Medicine; ATTEND Internal Medicine
DX: M62.82 Rhabdomyolysis (principal); E03.9 Hypothyroidism, unspecified; F10.20 Alcohol dependence, uncomplicated; G89.29 Other chronic pain; F17.210 Nicotine dependence, cigarettes, uncomplicated; M25.551 Pain in right hip; M54.9 Dorsalgia, unspecified; F32.A Depression, unspecified; E78.00 Pure hypercholesterolemia, unspecified; R79.89 Other specified abnormal findings of blood chemistry; R68.0 Hypothermia, not associated with low environmental temperature; Z59.00 Homelessness unspecified; Z88.0 Allergy status to penicillin; Z28.310 Unvaccinated for COVID-19
CPT/HCPCS: 36415; 80048; 80053; 80305; 81003; 82550; 83735; 84484; 85025; 87081; 93005; 97116; 97161; 99285; G0378; J0131; J1885; J7030; J7040

== ENCOUNTER 2022-07-23 07:37 | Emergency (ER) | payer MEDICAID ==
[~2022-07-23] VITALS: Ht 172.7 cm; Wt 86.4 kg
[~2022-07-23 07:37] MED LIST changes: -ALBU8.5H17 INH; +LEVO75TA PO; -LEVO75TA7 PO; -MECL-159 PO; -ONDA4TAB12 PO; -PRED10TA23 PO
[2022-07-23 07:39] VITALS: BP 117/62
[2022-07-23] MEDS ORDERED: DOXYCYCLINE 100MG CAPSULE PO STA (10:37)
[2022-07-23] MEDS ORDERED: TETanus/Pertussis (Acell)/Diphther VAC/PF (Tdap-Adult) 0.5ml syringe IMVAC ONE (10:40)
[2022-07-23] MEDS ORDERED: DOXY150T5 PO (10:43)
== END 2022-07-23 11:24 | disposition home or self-care (01) ==
LOC: ER 07:37
DX: L03.116 Cellulitis of left lower limb (principal); E78.00 Pure hypercholesterolemia, unspecified; E03.9 Hypothyroidism, unspecified; G89.29 Other chronic pain; M54.9 Dorsalgia, unspecified; F32.A Depression, unspecified; F17.210 Nicotine dependence, cigarettes, uncomplicated; F15.10 Other stimulant abuse, uncomplicated; Z59.00 Homelessness unspecified; Z88.2 Allergy status to sulfonamides; Z88.0 Allergy status to penicillin; Z88.1 Allergy status to other antibiotic agents; Z79.899 Other long term (current) drug therapy
CPT/HCPCS: 87070; 87077; 87186; 90471; 90715; 99284; A6222; J7030; A6446

== ENCOUNTER 2022-07-28 14:49 | Emergency (ER) | payer MEDICAID ==
[~2022-07-28] VITALS: Ht 172.7 cm; Wt 75.0 kg
[~2022-07-28 14:49] MED LIST changes: +DOXY150T5 PO
[2022-07-28 15:38] VITALS: BP 120/68
== END 2022-07-28 20:17 | disposition left against medical advice (07) ==
LOC: ER 14:50
DX: M79.605 Pain in left leg (principal); Z53.21 Procedure and treatment not carried out due to patient leaving prior to being seen by health care provider

== ENCOUNTER 2022-09-26 14:20 | Emergency (ER) | payer MEDICAID ==
[~2022-09-26] VITALS: Ht 172.7 cm; Wt 86.4 kg
[~2022-09-26 14:20] MED LIST changes: -DOXY150T5 PO
[2022-09-26 14:27] VITALS: BP 119/65
[2022-09-26] MEDS ORDERED: MUPI22OI30 TOP (16:09)
[2022-09-26] MEDS ORDERED: SULF1TAB49 PO (16:09)
[2022-09-26] MEDS ORDERED: sulfamethoxazole/trimethoprim DS (800/160mg) tablet PO ONE (16:10)
== END 2022-09-26 16:39 | disposition home or self-care (01) ==
LOC: ER 14:21
DX: L03.113 Cellulitis of right upper limb (principal); F15.90 Other stimulant use, unspecified, uncomplicated; E78.00 Pure hypercholesterolemia, unspecified; E03.9 Hypothyroidism, unspecified; G89.29 Other chronic pain; F32.A Depression, unspecified; Z98.890 Other specified postprocedural states; Z72.89 Other problems related to lifestyle; Z59.00 Homelessness unspecified; Z88.0 Allergy status to penicillin; Z88.1 Allergy status to other antibiotic agents; Z79.2 Long term (current) use of antibiotics; Z79.899 Other long term (current) drug therapy
CPT/HCPCS: 99283

== ENCOUNTER 2022-10-06 22:29 | Emergency (ER) | payer MEDICAID ==
[~2022-10-06] VITALS: Ht 172.7 cm; Wt 88.0 kg
[~2022-10-06 22:29] MED LIST changes: +SULF1TAB49 PO
--- NOTE | 2022-10-07 00:32 | NUR ---
took him to his room, placed him into [facility] and his feet were wrapped with 2 warmed blankets and the rest of him covered up with multiple layers of blankets. Feet are very cold to touch but has cap refill.
--- NOTE | 2022-10-07 00:44 | NUR ---
Took him a sandwiche and a milk and he is eating now.
[2022-10-07 05:55] VITALS: BP 116/69
--- NOTE | 2022-10-07 06:11 | NUR ---
WOUNDS ON RIGTH HAND ASSESSED WHEN GETTING PT. UP FROM BED. WOUNDS ARE HEALING AND WAS NOTIFIED OF REDNESS AND DRAINAIE. PT WILL CONTINUE ANTIBIOTICS THAT HE WAS ALREADY TAKING
== END 2022-10-07 06:59 | disposition home or self-care (01) ==
LOC: ER 22:30
DX: T68.XXXA Hypothermia, initial encounter (principal); M79.673 Pain in unspecified foot; G89.29 Other chronic pain; F10.10 Alcohol abuse, uncomplicated; Y90.9 Presence of alcohol in blood, level not specified; E78.00 Pure hypercholesterolemia, unspecified; E03.9 Hypothyroidism, unspecified; M54.9 Dorsalgia, unspecified; F31.9 Bipolar disorder, unspecified; F15.10 Other stimulant abuse, uncomplicated; Z59.00 Homelessness unspecified; Z88.0 Allergy status to penicillin; Z88.1 Allergy status to other antibiotic agents; Z79.899 Other long term (current) drug therapy
CPT/HCPCS: 99281

== ENCOUNTER 2023-05-12 11:53 | Emergency (ER) | payer MEDICAID ==
[~2023-05-12] VITALS: Ht 172.7 cm; Wt 75.0 kg
[~2023-05-12 11:53] MED LIST changes: -SULF1TAB49 PO
[2023-05-12 16:19] VITALS: BP 116/75
== END 2023-05-12 16:20 | disposition home or self-care (01) ==
LOC: ER 11:54
DX: S31.501A Unspecified open wound of unspecified external genital organs, male, initial encounter (principal); K94.09 Other complications of colostomy; E78.00 Pure hypercholesterolemia, unspecified; E03.9 Hypothyroidism, unspecified; G89.29 Other chronic pain; F15.90 Other stimulant use, unspecified, uncomplicated; Z87.81 Personal history of (healed) traumatic fracture; Z59.00 Homelessness unspecified; Z72.89 Other problems related to lifestyle; Z88.0 Allergy status to penicillin; Z88.1 Allergy status to other antibiotic agents; Z88.8 Allergy status to other drugs, medicaments and biological substances; X58.XXXA Exposure to other specified factors, initial encounter; Y93.89 Activity, other specified; Y92.89 Other specified places as the place of occurrence of the external cause; Y99.8 Other external cause status
CPT/HCPCS: 99281

== ENCOUNTER 2023-06-07 15:08 | Emergency (ER) | payer MEDICAID ==
[~2023-06-07] VITALS: Ht 172.7 cm; Wt 77.2 kg
[2023-06-07 15:21] VITALS: BP 131/81; PULSE 110; RESP 16; TEMP 98.6; O2SAT 98
--- NOTE | 2023-06-07 17:44 | NUR ---
Patient not in lobby x3 1700, 1715, 1730
== END 2023-06-07 17:46 | disposition left against medical advice (07) ==
LOC: ER 15:09
DX: M79.605 Pain in left leg (principal); Z53.21 Procedure and treatment not carried out due to patient leaving prior to being seen by health care provider
CPT/HCPCS: 99281

== ENCOUNTER 2023-06-13 18:23 | Emergency (ER) | payer MEDICAID ==
[~2023-06-13] VITALS: Ht 172.7 cm; Wt 86.4 kg
[2023-06-13 18:38] VITALS: BP 123/84; PULSE 81; RESP 18; TEMP 97; O2SAT 96
[2023-06-13] MEDS ORDERED: clotrimazole topical cream 15gm tube TP ONE ×2 (22:10→22:20)
[2023-06-13] MEDS ORDERED: CLOT15CR11 TOP ×2 (22:38)
== END 2023-06-13 22:57 | disposition home or self-care (01) ==
LOC: ER 18:24
DX: B35.6 Tinea cruris (principal); K94.09 Other complications of colostomy; E78.00 Pure hypercholesterolemia, unspecified; K21.9 Gastro-esophageal reflux disease without esophagitis; E03.9 Hypothyroidism, unspecified; F15.90 Other stimulant use, unspecified, uncomplicated; Z88.0 Allergy status to penicillin; Z88.1 Allergy status to other antibiotic agents; Z79.2 Long term (current) use of antibiotics
CPT/HCPCS: 99282; 99283; A4398; A4421

== ENCOUNTER 2023-06-20 20:00 | Inpatient (IN) | payer MEDICAID ==
[~2023-06-20] VITALS: Ht 172.7 cm; Wt 84.0 kg
[~2023-06-20 20:00] MED LIST changes: +CLOT15CR11 TOP
[2023-06-20] MEDS ORDERED: DOXYCYCLINE 100MG CAPSULE PO STA (22:55)
[2023-06-20] MEDS ORDERED: CEPH250T PO ×2 (22:55)
[2023-06-20] MEDS ORDERED: cephalexin 250mg capsule PO ONE (22:55)
[2023-06-20] MEDS ORDERED: DOXY-356 PO ×2 (22:55)
[2023-06-20] MEDS ORDERED: HYDROcodone/acetaminophen 5mg/325mg tablet PO ONE (22:55)
[2023-06-20] MEDS ORDERED: CefTRIAXone 2gm/D5W 50ml BAG 50 ML IV ONE (23:10)
[2023-06-20] MEDS ORDERED: normal saline 1000ML IV soln IV ONE (23:10)
[2023-06-20] MEDS ORDERED: vancomycin/NS 1 GM ADD-VANTAGE 250 ML IV ONE (23:10)
[2023-06-21 00:21] LABS: BASOPHILS % (AUTO) 0.2 % (0-1); EOSINOPHILS % (AUTO) 0.2 % (0-6); HEMOGLOBIN 10.9 g/dl (14.0-17.9); MONOCYTES # (AUTO) 0.6 X10'3 (0-0.9); NEUTROPHILS # (AUTO) 19.8 X10'3 (1.8-7.7); WHITE BLOOD COUNT 21.1 X10'3 (4.5-11.0)
[2023-06-21 00:22] LABS: HEMATOCRIT 32.6 % (42.0-52.0); LYMPHOCYTES # (AUTO) 0.7 X10'3 (1.1-4.8); LYMPHOCYTES % (AUTO) 3.2 % (21-51); MEAN CORPUSCULAR HEMOGLOBIN 32.2 PG (27.0-31.0); MEAN CORPUSCULAR HGB CONC 33.4 g/dL (33.0-36.5); MEAN CORPUSCULAR VOLUME 96.5 FL (78-98); MEAN PLATELET VOLUME 7.2 FL (7.4-10.4); MONOCYTES % (AUTO) 2.7 % (2-12); NEUTROPHILS % (AUTO) 93.7 % (42-75); PLATELET COUNT 339 X10'3 (140-440); RED BLOOD COUNT 3.38 X10'6 (4.70-6.10); RED CELL DISTRIBUTION WIDTH 16.2 % (11.5-14.5)
[2023-06-21 00:32] LABS: ALANINE AMINOTRANSFERASE 29 U/L (12-78); ALBUMIN 4.2 G/DL (3.4-5.0); ALKALINE PHOSPHATASE 51 IU/L (46-116); ANION GAP 8 (8-16); ASPARTATE AMINO TRANSFERASE 63 U/L (10-37); BILIRUBIN,TOTAL 0.4 MG/DL (0.1-1.0); BLOOD UREA NITROGEN 16 MG/DL (7-18); CALCIUM 8.9 MG/DL (8.5-10.1); CHLORIDE 99 MMOL/L (99-107); CREATININE 1.45 MG/DL (0.60-1.10); GLUCOSE 137 MG/DL (70-104); POTASSIUM 3.5 MMOL/L (3.5-5.1); SODIUM 137 MMOL/L (135-145); TOTAL CARBON DIOXIDE 29.6 MMOL/L (24-32); TOTAL PROTEIN 8.5 G/DL (6.4-8.2); eCRCL 54 ML/MIN; eGFR 50 ML/MIN
[2023-06-21] MEDS ORDERED: potassium Cl 20 mEq SR tablet PO PRN ×2 (02:20)
[2023-06-21] MEDS ORDERED: ondansetron/PF 4mg/2ml inj IV PRN (02:20)
[2023-06-21] MEDS ORDERED: magnesium 2GM in 50ml NS 50 ML IV PRN (02:20)
[2023-06-21] MEDS ORDERED: morphine 2 MG/ML inj. syringe IV PRN (02:20)
[2023-06-21] MEDS ORDERED: acetaminophen 325mg tablet PO PRN (02:20)
[2023-06-21] MEDS ORDERED: magnesium Cl slow-release 64mg tablet PO PRN (02:20)
[2023-06-21] MEDS ORDERED: magnesium 4gm in 100ml NS 100 ML IV PRN (02:20)
[2023-06-21] MEDS ORDERED: potassium Cl 40MEQ/1/2NS 520ml 520 ML IV PRN (02:20)
[2023-06-21 02:24] LABS: ANISOCYTOSIS 1+; PLATELET ESTIMATE NORMAL; TOTAL CELLS COUNTED 100
[2023-06-21] MEDS: normal saline 1000ml 1,000 ML IV SCH ×3 (03:03→19:00)
[2023-06-21] MEDS ORDERED: vancomycin/NS 1 GM ADD-VANTAGE 250 ML IV SCH (04:00)
[2023-06-21] MEDS: levoFLOXACIN-Levaquin 500mg/D5 100 ML IV SCH (04:16)
[2023-06-21 06:51] LABS: MAGNESIUM 2.1 MG/DL (1.5-2.4)
[2023-06-21 08:00] VITALS: RESP 20
[2023-06-21] MEDS: K and/or MAG REPLACEMENT MC SCH ×2 (08:00→18:49)
--- NOTE | 2023-06-21 08:08 | NUR ---
Admitted to PCU Colostomy complete change stool is firm and formed. Abdomen is firm with rebound tenderness x3 days per Pt. report.
[2023-06-21] MEDS ORDERED: magnesium hydroxide 30ml (MOM) UD suspension PO PRN ×2 (10:55→11:25)
[2023-06-21 11:00] VITALS: BP 98/56; RESP 12; TEMP 98.1; O2SAT 95
[2023-06-21] MEDS ORDERED: VANCOmycin 2,000MG in NS 500ml IV soln IV ONE (11:10)
[2023-06-21] MEDS: vancomycin/NS 1 GM ADD-VANTAGE 250 ML IV SCH ×2 (12:11→23:29)
[2023-06-21 15:00] VITALS: BP 99/59; PULSE 70; RESP 16; TEMP 98.3; O2SAT 92
[2023-06-21] MEDS: HYDROcodone/acetaminophen 5mg/325mg tablet PO PRN (16:20)
[2023-06-21] MEDS ORDERED: NO HOME MEDS (16:41)
--- NOTE | 2023-06-21 17:32 | NUR ---
Take no home medications. [facility] homeless and [facility] get prescriptions [facility] etc.
[2023-06-21 18:00] VITALS: BP 105/54; PULSE 80; RESP 18; TEMP 97.1; O2SAT 95
[2023-06-21 20:00] VITALS: RESP 20
[2023-06-21 22:00] VITALS: BP 92/53; PULSE 65; RESP 20; TEMP 97.8; O2SAT 90
[2023-06-22] VITALS (8 sets, daily range): BP systolic 92–120; BP diastolic 53–71; PULSE 64–71; RESP 13–23; TEMP 97.2–97.8; O2SAT 90–96
[2023-06-22] MEDS: levoFLOXACIN-Levaquin 500mg/D5 100 ML IV SCH (03:00)
[2023-06-22 06:07] LABS: BASOPHILS % (AUTO) 0.4 % (0-1); EOSINOPHILS % (AUTO) 0.5 % (0-6); HEMATOCRIT 28.6 % (42.0-52.0); HEMOGLOBIN 9.7 g/dl (14.0-17.9); LYMPHOCYTES % (AUTO) 9.8 % (21-51); MEAN CORPUSCULAR HGB CONC 33.7 g/dL (33.0-36.5); MEAN CORPUSCULAR VOLUME 97.7 FL (78-98); MEAN PLATELET VOLUME 7.2 FL (7.4-10.4); MONOCYTES # (AUTO) 0.3 X10'3 (0-0.9); MONOCYTES % (AUTO) 3.2 % (2-12); NEUTROPHILS # (AUTO) 8.5 X10'3 (1.8-7.7); NEUTROPHILS % (AUTO) 86.1 % (42-75); PLATELET COUNT 268 X10'3 (140-440); RED BLOOD COUNT 2.93 X10'6 (4.70-6.10); RED CELL DISTRIBUTION WIDTH 15.8 % (11.5-14.5); WHITE BLOOD COUNT 9.9 X10'3 (4.5-11.0)
[2023-06-22 06:23] LABS: ALBUMIN 3.2 G/DL (3.4-5.0); ANION GAP 7 (8-16); BLOOD UREA NITROGEN 14 MG/DL (7-18); BUN/CREATININE RATIO 12.1 (10.0-20.0); CHLORIDE 104 MMOL/L (99-107); CREATININE 1.16 MG/DL (0.60-1.10); GLUCOSE 119 MG/DL (70-104); POTASSIUM 3.7 MMOL/L (3.5-5.1); SODIUM 139 MMOL/L (135-145); TOTAL CARBON DIOXIDE 27.8 MMOL/L (24-32); eCRCL 67 ML/MIN; eGFR 65 ML/MIN
[2023-06-22] MEDS: K and/or MAG REPLACEMENT MC SCH ×2 (07:02→20:00)
[2023-06-22] MEDS: normal saline 1000ml 1,000 ML IV SCH ×2 (07:03→18:20)
[2023-06-22] MEDS: HYDROcodone/acetaminophen 5mg/325mg tablet PO PRN (09:50)
[2023-06-22] MEDS: vancomycin/NS 1 GM ADD-VANTAGE 250 ML IV SCH (10:18)
--- NOTE | 2023-06-22 12:12 | NUR ---
PRESSURE ULCER EDUCATION: DEFINITION: A pressure ulcer is an area of skin that breaks down when you stay in one position too long. The constant pressure against the skin reduces the blood flow to that area and the affected tissue dies. CAUSES: "Being bedridden or in a wheelchair "Fragile skin "Having a chronic condition, such as diabetes or vascular disease "Inability to move certain parts of your body without assistance "Older age "Incontinence of urine or stool SYMPTOMS: "A reddened area that DOES NOT turn white when pressed on - this can be the beginning of a pressure ulcer "A blister, deep sore or a crater - these can be advanced pressure ulcers FIRST AID: "Relieve the pressure on this area "Keep the area clean and dry "Call your primary doctor if you see any of the above symptoms "DO NOT massage the area "DO NOT use a donut shaped or ring shaped pillow- these actually interfere with the blood flow and cause complications PREVENTION: "Check for pressure ulcers everyday "Change position at least every two hours to relieve pressure "Use items that help relieve pressure- pillows, sheepskin, foam padding, and powders. "Keep skin clean and dry "Eat healthy well balanced meals "Exercise daily IF YOU SEE ANY OF THESE SYMPTOMS WHILE IN THE HOSPITAL - TELL YOUR NURSE IMMEDIATELY. IF YOU SEE ANY OF THESE SYMPTOMS WHILE AT HOME OR HAVE ANY QUESTIONS OR CONCERNS ABOUT PRESSURE ULCERS - CALL YOUR PRIMARY DOCTOR IMMEDIATELY. Addendum: 06/22/23 at 1212 by Anna Marie García RN Amended: Links added.
[2023-06-22] MEDS: nicotine 14mg patch - 24hr TD SCH (16:07)
[2023-06-22] MEDS ORDERED: enoxaparin 40mg/0.4ml syringe SUBCUT SCH (20:00)
--- NOTE | 2023-06-22 21:13 | NUR ---
Patient refusing Subq injection Lovenox, provided education on prevention of DVT/clots but has continued to refuse, stating "I don't like needles and I don't need it". Also refusing SCDs at this time.
[2023-06-22] MEDS ORDERED: VANCOMYCIN LEVEL IV ONE (22:30)
[2023-06-23] MEDS: vancomycin/NS 1 GM ADD-VANTAGE 250 ML IV SCH ×2 (01:00→10:53)
[2023-06-23 02:00] VITALS: BP 111/70; PULSE 72; RESP 20; TEMP 97.6; O2SAT 91
[2023-06-23] MEDS: levoFLOXACIN-Levaquin 500mg/D5 100 ML IV SCH (03:57)
[2023-06-23] MEDS: normal saline 1000ml 1,000 ML IV SCH (04:20)
[2023-06-23 06:00] VITALS: BP 120/78; PULSE 63; RESP 19; TEMP 97.5; O2SAT 93
[2023-06-23 07:34] LABS: BASOPHILS % (AUTO) 0.3 % (0-1); EOSINOPHILS # (AUTO) 0.1 X10'3 (0-0.9); EOSINOPHILS % (AUTO) 1.3 % (0-6); HEMOGLOBIN 9.1 g/dl (14.0-17.9); LYMPHOCYTES # (AUTO) 1.2 X10'3 (1.1-4.8); LYMPHOCYTES % (AUTO) 14.5 % (21-51); MEAN CORPUSCULAR HGB CONC 33.9 g/dL (33.0-36.5); MEAN CORPUSCULAR VOLUME 97.3 FL (78-98); MEAN PLATELET VOLUME 7.8 FL (7.4-10.4); MONOCYTES # (AUTO) 0.3 X10'3 (0-0.9); MONOCYTES % (AUTO) 3.9 % (2-12); NEUTROPHILS # (AUTO) 6.6 X10'3 (1.8-7.7); PLATELET COUNT 271 X10'3 (140-440); RED BLOOD COUNT 2.77 X10'6 (4.70-6.10); RED CELL DISTRIBUTION WIDTH 15.6 % (11.5-14.5); WHITE BLOOD COUNT 8.3 X10'3 (4.5-11.0)
[2023-06-23 07:35] LABS: ANION GAP 7 (8-16); BLOOD UREA NITROGEN 12 MG/DL (7-18); BUN/CREATININE RATIO 10.3 (10.0-20.0); CALCIUM 8.2 MG/DL (8.5-10.1); CHLORIDE 104 MMOL/L (99-107); CREATININE 1.16 MG/DL (0.60-1.10); GLUCOSE 112 MG/DL (70-104); MAGNESIUM 2.1 MG/DL (1.5-2.4); POTASSIUM 3.7 MMOL/L (3.5-5.1); SODIUM 140 MMOL/L (135-145); TOTAL CARBON DIOXIDE 28.6 MMOL/L (24-32); eCRCL 67 ML/MIN; eGFR 65 ML/MIN
[2023-06-23] MEDS: K and/or MAG REPLACEMENT MC SCH (08:00)
[2023-06-23] MEDS: nicotine 14mg patch - 24hr TD SCH (08:00)
[2023-06-23 11:00] VITALS: BP 118/70; PULSE 60; RESP 16; TEMP 97.9; O2SAT 99
--- NOTE | 2023-06-23 11:31 | NUR ---
Called wound/cistern room operator to obtain colostomy supplies for pt until his next outpt wound care appt. RN will bring supplies right up.
[2023-06-23] MEDS ORDERED: DOXY-243 PO (11:54)
--- NOTE | 2023-06-23 13:30 | NUR ---
found pt dressed, iv pulled out and heart monitor off. pt stated he is ready to go. Attempted to go over discharge instructions but pt refused. I reminded him of upcoming wound clinic appointment. provided 6 days worth of colostomy supplies which pt is in possession of. pt stated he understood about he wound clinic appoinment. wheeled pt down to lobby via wheelchair to await a cab that we called.
[2023-06-23] MEDS ORDERED: VANCOMYCIN LEVEL IV ONE (22:30)
== END 2023-06-23 13:42 | disposition home or self-care (01) | DRG 720 ==
LOC: ER 20:00 → ED HOLD 06-21 02:21 → PCU 3S 06-21 07:22
PROVIDERS: ADMIT Internal Medicine; ATTEND Internal Medicine
DX: A41.9 Sepsis, unspecified organism (principal); N17.9 Acute kidney failure, unspecified; L03.116 Cellulitis of left lower limb; E03.9 Hypothyroidism, unspecified; E78.00 Pure hypercholesterolemia, unspecified; F32.A Depression, unspecified; D64.9 Anemia, unspecified; G89.29 Other chronic pain; M54.9 Dorsalgia, unspecified; F17.210 Nicotine dependence, cigarettes, uncomplicated; K21.9 Gastro-esophageal reflux disease without esophagitis; Z88.0 Allergy status to penicillin; Z93.3 Colostomy status; Z59.00 Homelessness unspecified; Z88.1 Allergy status to other antibiotic agents; Z90.49 Acquired absence of other specified parts of digestive tract; Z79.899 Other long term (current) drug therapy
CPT/HCPCS: 36415; 80048; 80053; 83605; 83735; 84145; 85007; 85025; 87040; 93971; 97116; 97161; 97530; 99285; A4421; A4649; A6234; G0378; J1956; J3370; J7030; J7040

== ENCOUNTER 2023-07-20 13:55 | Emergency (ER) | payer MEDICAID ==
[~2023-07-20] VITALS: Ht 167.6 cm; Wt 84.0 kg
[2023-07-20 14:05] VITALS: BP 115/72; PULSE 68; RESP 16; TEMP 97.5; O2SAT 100
[2023-07-20 14:43] LABS: BASOPHILS % (AUTO) 0.8 % (0-1); EOSINOPHILS # (AUTO) 0.1 X10'3 (0-0.9); EOSINOPHILS % (AUTO) 1.9 % (0-6); HEMATOCRIT 37.1 % (42.0-52.0); HEMOGLOBIN 12.3 g/dl (14.0-17.9); LYMPHOCYTES # (AUTO) 0.8 X10'3 (1.1-4.8); LYMPHOCYTES % (AUTO) 16.2 % (21-51); MEAN CORPUSCULAR HEMOGLOBIN 33.1 PG (27.0-31.0); MEAN CORPUSCULAR HGB CONC 33.1 g/dL (33.0-36.5); MEAN CORPUSCULAR VOLUME 99.8 FL (78-98); MEAN PLATELET VOLUME 7.4 FL (7.4-10.4); MONOCYTES # (AUTO) 0.4 X10'3 (0-0.9); MONOCYTES % (AUTO) 7.8 % (2-12); NEUTROPHILS # (AUTO) 3.5 X10'3 (1.8-7.7); NEUTROPHILS % (AUTO) 73.3 % (42-75); PLATELET COUNT 206 X10'3 (140-440); RED BLOOD COUNT 3.72 X10'6 (4.70-6.10); RED CELL DISTRIBUTION WIDTH 15.7 % (11.5-14.5); WHITE BLOOD COUNT 4.8 X10'3 (4.5-11.0)
[2023-07-20 15:00] LABS: ALANINE AMINOTRANSFERASE 39 U/L (12-78); ALBUMIN 4.3 G/DL (3.4-5.0); ALBUMIN/GLOBULIN RATIO 1.1 (1.1-1.5); ALKALINE PHOSPHATASE 47 IU/L (46-116); ANION GAP 13 (8-16); ASPARTATE AMINO TRANSFERASE 80 U/L (10-37); BILIRUBIN,TOTAL 0.4 MG/DL (0.1-1.0); BLOOD UREA NITROGEN 14 MG/DL (7-18); BUN/CREATININE RATIO 9.7 (10.0-20.0); CALCIUM 8.9 MG/DL (8.5-10.1); CHLORIDE 102 MMOL/L (99-107); CREATININE 1.45 MG/DL (0.60-1.10); GLUCOSE 122 MG/DL (70-104); LIPASE 139 U/L (73-393); POTASSIUM 3.7 MMOL/L (3.5-5.1); SODIUM 138 MMOL/L (135-145); TOTAL CARBON DIOXIDE 23.5 MMOL/L (24-32); TOTAL PROTEIN 8.2 G/DL (6.4-8.2); eCRCL 50 ML/MIN; eGFR 50 ML/MIN
== END 2023-07-20 17:59 | disposition left against medical advice (07) ==
LOC: ER 13:56
DX: R19.7 Diarrhea, unspecified (principal); Z53.21 Procedure and treatment not carried out due to patient leaving prior to being seen by health care provider
CPT/HCPCS: 36415; 80053; 83690; 85025; 99281

== ENCOUNTER 2023-08-17 22:20 | Emergency (ER) | payer MEDICAID ==
[~2023-08-17] VITALS: Ht 172.7 cm; Wt 81.8 kg
[2023-08-17 22:29] VITALS: BP 148/77; PULSE 82; RESP 16; TEMP 98.4; O2SAT 95
== END 2023-08-18 00:08 ==
LOC: ER 22:21
DX: M25.551 Pain in right hip (principal); G89.29 Other chronic pain; E78.00 Pure hypercholesterolemia, unspecified; K21.9 Gastro-esophageal reflux disease without esophagitis; E03.9 Hypothyroidism, unspecified; F32.A Depression, unspecified; Z88.1 Allergy status to other antibiotic agents; Z88.0 Allergy status to penicillin
CPT/HCPCS: 73502; 73551; 99284

== ENCOUNTER 2023-08-27 16:36 | Emergency (ER) | payer MEDICAID ==
[~2023-08-27] VITALS: Ht 172.7 cm; Wt 80.2 kg
[2023-08-27 16:42] VITALS: BP 107/56; PULSE 83; RESP 18; TEMP 98.6; O2SAT 98
--- NOTE | 2023-08-27 19:20 | NUR ---
DRESSING APPLIED TO LT HAND WOUND
== END 2023-08-27 19:21 | disposition home or self-care (01) ==
LOC: ER 16:37
DX: L03.114 Cellulitis of left upper limb (principal); E78.00 Pure hypercholesterolemia, unspecified; K21.9 Gastro-esophageal reflux disease without esophagitis; E03.9 Hypothyroidism, unspecified; F15.90 Other stimulant use, unspecified, uncomplicated; Z88.0 Allergy status to penicillin; Z88.1 Allergy status to other antibiotic agents
CPT/HCPCS: 99281

== ENCOUNTER 2023-10-07 23:16 | Emergency (ER) | payer MEDICAID ==
[~2023-10-07] VITALS: Ht 172.7 cm; Wt 81.8 kg
[2023-10-08] MEDS ORDERED: normal saline 1000ml 1,000 ML IV ONE (01:10)
[2023-10-08] MEDS ORDERED: iohexol 350MG/ML 100ml bottle IV ONE (01:38)
[2023-10-08 01:42] LABS: EOSINOPHILS # (AUTO) 0.1 X10'3 (0-0.9); HEMATOCRIT 32.5 % (42.0-52.0); LYMPHOCYTES # (AUTO) 1.4 X10'3 (1.1-4.8); LYMPHOCYTES % (AUTO) 30.7 % (21-51); MEAN CORPUSCULAR HEMOGLOBIN 31.9 PG (27.0-31.0); MEAN PLATELET VOLUME 7.4 FL (7.4-10.4); MONOCYTES # (AUTO) 0.2 X10'3 (0-0.9); NEUTROPHILS # (AUTO) 2.8 X10'3 (1.8-7.7); NEUTROPHILS % (AUTO) 61.3 % (42-75); PLATELET COUNT 195 X10'3 (140-440); RED BLOOD COUNT 3.46 X10'6 (4.70-6.10); RED CELL DISTRIBUTION WIDTH 14.9 % (11.5-14.5); WHITE BLOOD COUNT 4.6 X10'3 (4.5-11.0)
[2023-10-08 01:55] LABS: ALANINE AMINOTRANSFERASE 62 U/L (12-78); ALBUMIN/GLOBULIN RATIO 1.1 (1.1-1.5); ALKALINE PHOSPHATASE 48 IU/L (46-116); ANION GAP 10 (8-16); ASPARTATE AMINO TRANSFERASE 135 U/L (10-37); BILIRUBIN,TOTAL 0.3 MG/DL (0.1-1.0); BLOOD UREA NITROGEN 17 MG/DL (7-18); BUN/CREATININE RATIO 13.8 (10.0-20.0); C-REACTIVE PROTEIN 0.14 MG/DL (0.0-0.5); CALCIUM 8.4 MG/DL (8.5-10.1); CHLORIDE 99 MMOL/L (99-107); CREATININE 1.23 MG/DL (0.60-1.10); GLUCOSE 130 MG/DL (70-104); POTASSIUM 3.1 MMOL/L (3.5-5.1); SODIUM 137 MMOL/L (135-145); TOTAL CARBON DIOXIDE 28.2 MMOL/L (24-32); TOTAL PROTEIN 7.5 G/DL (6.4-8.2); eCRCL 63 ML/MIN; eGFR 60 ML/MIN
[2023-10-08] MEDS ORDERED: potassium Cl 20 mEq SR tablet PO STA (03:07)
[2023-10-08] MEDS ORDERED: aspirin 325mg tablet, delayed-release (Ecotrin) PO ONE (05:40)
[2023-10-08] MEDS ORDERED: enoxaparin 80mg/0.8ml syringe SUBCUT ONE (05:50)
[2023-10-08] MEDS ORDERED: potassium Cl 20 mEq SR tablet PO PRN ×2 (08:45)
[2023-10-08] MEDS ORDERED: potassium Cl 40MEQ/1/2NS 520ml 520 ML IV PRN (08:45)
[2023-10-08] MEDS ORDERED: morphine 2 MG/ML inj. syringe IV PRN ×2 (08:45)
[2023-10-08] MEDS ORDERED: ondansetron/PF 4mg/2ml inj IV PRN (08:45)
[2023-10-08] MEDS ORDERED: magnesium hydroxide 30ml (MOM) UD suspension PO PRN (08:45)
[2023-10-08] MEDS ORDERED: HYDROcodone/acetaminophen 10/325mg tab PO PRN (08:45)
[2023-10-08] MEDS ORDERED: mag hydrox/Alum hydrox/simeth 30ml oral suspension PO PRN (08:45)
[2023-10-08] MEDS ORDERED: magnesium 4gm in 100ml NS 100 ML IV PRN (08:45)
[2023-10-08] MEDS ORDERED: HYDROcodone/acetaminophen 5mg/325mg tablet PO PRN (08:45)
[2023-10-08] MEDS ORDERED: acetaminophen 325mg tablet PO PRN ×2 (08:45)
[2023-10-08] MEDS ORDERED: magnesium Cl slow-release 64mg tablet PO PRN (08:45)
[2023-10-08] MEDS ORDERED: magnesium 2GM in 50ml NS 50 ML IV PRN (08:45)
[2023-10-08 08:55] LABS: APTT 42 SECONDS (22-32); INR 1.1 INR; PROTHROMBIN TIME 11.3 SECONDS (9.0-12.0)
[2023-10-08 13:29] VITALS: BP 117/76; PULSE 59; RESP 18; TEMP 97.8; O2SAT 98
[2023-10-08] MEDS ORDERED: K and/or MAG REPLACEMENT MC SCH (20:00)
[2023-10-08] MEDS ORDERED: docusate sod 100mg capsule PO SCH (20:00)
[2023-10-09] MEDS ORDERED: enoxaparin 40mg/0.4ml syringe SUBCUT SCH (08:00)
== END 2023-10-08 14:46 | disposition home or self-care (01) ==
LOC: ER 23:16 → ED HOLD 10-08 08:46 → UNDOADMIN 10-08 08:46 → UNDODISIN 10-08 14:46 → ER 10-08 14:46
DX: I73.9 Peripheral vascular disease, unspecified (principal); E78.00 Pure hypercholesterolemia, unspecified; K21.9 Gastro-esophageal reflux disease without esophagitis; E03.9 Hypothyroidism, unspecified; G89.29 Other chronic pain; F32.9 Major depressive disorder, single episode, unspecified; F17.200 Nicotine dependence, unspecified, uncomplicated; F15.90 Other stimulant use, unspecified, uncomplicated; Z72.89 Other problems related to lifestyle; Z98.890 Other specified postprocedural states; Z59.00 Homelessness unspecified; Z88.0 Allergy status to penicillin; Z79.899 Other long term (current) drug therapy
CPT/HCPCS: 36415; 73706; 80053; 84132; 85025; 85610; 85651; 85730; 86140; 93005; 93922; 93925; 93971; 96360; 96372; 99285; J1650; J3490; J7030; Q9967; G0378

== ENCOUNTER 2023-10-24 13:01 | Emergency (ER) | payer MEDICAID ==
[~2023-10-24] VITALS: Ht 172.7 cm; Wt 84.6 kg
[2023-10-24 13:09] VITALS: TEMP 97.8
[2023-10-24 14:59] LABS: BASOPHILS # (AUTO) 0.1 X10'3 (0-0.2); BASOPHILS % (AUTO) 0.8 % (0-1); EOSINOPHILS # (AUTO) 0.1 X10'3 (0-0.9); EOSINOPHILS % (AUTO) 1.9 % (0-6); HEMATOCRIT 32.9 % (42.0-52.0); LYMPHOCYTES # (AUTO) 1.8 X10'3 (1.1-4.8); LYMPHOCYTES % (AUTO) 25.7 % (21-51); MEAN CORPUSCULAR HEMOGLOBIN 31.2 PG (27.0-31.0); MEAN CORPUSCULAR HGB CONC 33.4 g/dL (33.0-36.5); MEAN CORPUSCULAR VOLUME 93.4 FL (78-98); MEAN PLATELET VOLUME 7.6 FL (7.4-10.4); MONOCYTES # (AUTO) 0.5 X10'3 (0-0.9); MONOCYTES % (AUTO) 6.9 % (2-12); NEUTROPHILS # (AUTO) 4.5 X10'3 (1.8-7.7); NEUTROPHILS % (AUTO) 64.7 % (42-75); PLATELET COUNT 237 X10'3 (140-440); RED BLOOD COUNT 3.53 X10'6 (4.70-6.10); RED CELL DISTRIBUTION WIDTH 14.9 % (11.5-14.5); WHITE BLOOD COUNT 6.9 X10'3 (4.5-11.0)
[2023-10-24 15:09] LABS: ALANINE AMINOTRANSFERASE 59 U/L (12-78); ALBUMIN 4.5 G/DL (3.4-5.0); ALBUMIN/GLOBULIN RATIO 1.2 (1.1-1.5); ALKALINE PHOSPHATASE 34 IU/L (46-116); ANION GAP 10 (8-16); ASPARTATE AMINO TRANSFERASE 129 U/L (10-37); BILIRUBIN,TOTAL 0.4 MG/DL (0.1-1.0); BLOOD UREA NITROGEN 16 MG/DL (7-18); BUN/CREATININE RATIO 12.8 (10.0-20.0); CALCIUM 9.3 MG/DL (8.5-10.1); CHLORIDE 99 MMOL/L (99-107); CREATININE 1.25 MG/DL (0.60-1.10); GLUCOSE 97 MG/DL (70-104); POTASSIUM 3.6 MMOL/L (3.5-5.1); SODIUM 138 MMOL/L (135-145); TOTAL PROTEIN 8.3 G/DL (6.4-8.2); eCRCL 62 ML/MIN; eGFR 59 ML/MIN
[2023-10-24 15:10] LABS: LIPASE 43 U/L (16-77)
[2023-10-24 15:32] VITALS: BP 128/84; PULSE 77; RESP 17; O2SAT 98
== END 2023-10-24 16:45 | disposition left against medical advice (07) ==
LOC: ER 13:01
DX: K94.20 Gastrostomy complication, unspecified (principal); E78.00 Pure hypercholesterolemia, unspecified; K21.9 Gastro-esophageal reflux disease without esophagitis; E03.9 Hypothyroidism, unspecified; F31.9 Bipolar disorder, unspecified; F15.10 Other stimulant abuse, uncomplicated; Z88.0 Allergy status to penicillin; Z88.1 Allergy status to other antibiotic agents
CPT/HCPCS: 36415; 80053; 83690; 85025; 99283

== ENCOUNTER 2023-12-28 11:19 | Emergency (ER) | payer MEDICAID ==
[~2023-12-28] VITALS: Ht 172.7 cm; Wt 85.0 kg
[2023-12-28 13:12] LABS: BASOPHILS # (AUTO) 0.1 X10'3 (0-0.2); BASOPHILS % (AUTO) 1.2 % (0-1); EOSINOPHILS # (AUTO) 0.1 X10'3 (0-0.9); EOSINOPHILS % (AUTO) 3.1 % (0-6); HEMATOCRIT 31.4 % (42.0-52.0); HEMOGLOBIN 10.6 g/dl (14.0-17.9); LYMPHOCYTES # (AUTO) 1.4 X10'3 (1.1-4.8); MEAN CORPUSCULAR HEMOGLOBIN 31.8 PG (27.0-31.0); MEAN CORPUSCULAR HGB CONC 33.9 g/dL (33.0-36.5); MEAN CORPUSCULAR VOLUME 93.9 FL (78-98); MEAN PLATELET VOLUME 7.5 FL (7.4-10.4); MONOCYTES # (AUTO) 0.3 X10'3 (0-0.9); MONOCYTES % (AUTO) 6.4 % (2-12); NEUTROPHILS # (AUTO) 2.9 X10'3 (1.8-7.7); NEUTROPHILS % (AUTO) 60.3 % (42-75); PLATELET COUNT 228 X10'3 (140-440); RED BLOOD COUNT 3.34 X10'6 (4.70-6.10); RED CELL DISTRIBUTION WIDTH 15.5 % (11.5-14.5); WHITE BLOOD COUNT 4.8 X10'3 (4.5-11.0)
[2023-12-28 13:28] LABS: APTT 37 SECONDS (22-32); INR 1.1 INR
[2023-12-28 13:30] LABS: ALANINE AMINOTRANSFERASE 45 U/L (12-78); ALBUMIN 4.5 G/DL (3.4-5.0); ALBUMIN/GLOBULIN RATIO 1.2 (1.1-1.5); ALKALINE PHOSPHATASE 36 IU/L (46-116); ANION GAP 8 (8-16); ASPARTATE AMINO TRANSFERASE 108 U/L (10-37); BILIRUBIN,DIRECT 0.1 MG/DL (0-0.3); BILIRUBIN,TOTAL 0.4 MG/DL (0.1-1.0); BLOOD UREA NITROGEN 13 MG/DL (7-18); BUN/CREATININE RATIO 11.7 (10.0-20.0); CALCIUM 8.6 MG/DL (8.5-10.1); CHLORIDE 102 MMOL/L (99-107); CREATININE 1.11 MG/DL (0.60-1.10); GLUCOSE 93 MG/DL (70-104); POTASSIUM 3.4 MMOL/L (3.5-5.1); SODIUM 140 MMOL/L (135-145); TOTAL CARBON DIOXIDE 29.6 MMOL/L (24-32); TOTAL PROTEIN 8.2 G/DL (6.4-8.2); eCRCL 69 ML/MIN; eGFR 68 ML/MIN
[2023-12-28 13:37] LABS: ETHANOL < 10 MG/DL (<10)
[2023-12-28 15:08] LABS: BILIRUBIN,URINE NEGATIVE (Neg); CLARITY,URINE CLEAR (Clear); COLOR,URINE YELLOW (Yellow); GLUCOSE, URINE NEGATIVE (Neg); KETONES,URINE NEGATIVE (Neg); LEUKOCYTE ESTERASE ,URINE NEGATIVE (Neg); NITRITES, URINE NEGATIVE (Neg); OCCULT BLOOD,URINE NEGATIVE (Neg); PROTEIN,URINE NEGATIVE (Neg); UROBILINOGEN,URINE 0.2 E.U/dL (0.2-1.0)
[2023-12-28 15:10] LABS: UA COLLECTION TYPE URINAL
[2023-12-28 16:24] VITALS: BP 107/71; PULSE 70; RESP 17; TEMP 98; O2SAT 99
== END 2023-12-28 16:25 | disposition home or self-care (01) ==
LOC: ER 11:19
DX: K94.01 Colostomy hemorrhage (principal); E78.00 Pure hypercholesterolemia, unspecified; K21.9 Gastro-esophageal reflux disease without esophagitis; E03.9 Hypothyroidism, unspecified; F15.90 Other stimulant use, unspecified, uncomplicated; R79.1 Abnormal coagulation profile; Z88.0 Allergy status to penicillin; Z88.1 Allergy status to other antibiotic agents
CPT/HCPCS: 36415; 80048; 80076; 80320; 81003; 85025; 85610; 85730; 86885; 86900; 86901; 99283

== ENCOUNTER 2024-03-03 13:14 | Emergency (ER) | payer MEDICAID ==
[~2024-03-03] VITALS: Ht 172.7 cm; Wt 81.8 kg
[2024-03-03 13:30] VITALS: BP 134/81; PULSE 74; RESP 16; TEMP 98; O2SAT 97
== END 2024-03-03 13:52 | disposition left against medical advice (07) ==
LOC: ER 13:14
DX: Z93.3 Colostomy status (principal); Z53.21 Procedure and treatment not carried out due to patient leaving prior to being seen by health care provider

== ENCOUNTER 2025-02-13 13:44 | Emergency (ER) | payer MEDICAID ==
[~2025-02-13] VITALS: Ht 172.7 cm; Wt 75.9 kg
[2025-02-13] MEDS: ketorolac trometh 15mg/ml vial 15 MG/ML ML IM ONE (15:54)
[2025-02-13 15:58] VITALS: BP 138/76; PULSE 78; RESP 16; TEMP 98.2; O2SAT 99
== END 2025-02-13 15:57 | disposition home or self-care (01) ==
LOC: ER 13:45
DX: M54.9 Dorsalgia, unspecified (principal); E03.9 Hypothyroidism, unspecified; E78.00 Pure hypercholesterolemia, unspecified; K21.9 Gastro-esophageal reflux disease without esophagitis; F32.A Depression, unspecified; G89.29 Other chronic pain; F15.90 Other stimulant use, unspecified, uncomplicated; Z90.49 Acquired absence of other specified parts of digestive tract; Z88.0 Allergy status to penicillin; Z88.1 Allergy status to other antibiotic agents; Z72.89 Other problems related to lifestyle; Z59.00 Homelessness unspecified
CPT/HCPCS: 72040; 72100; 96372; 99284; J1885

== ENCOUNTER 2025-02-14 14:12 | Emergency (ER) | payer MEDICAID ==
[~2025-02-14] VITALS: Ht 172.7 cm; Wt 80.6 kg
[2025-02-14 14:21] VITALS: TEMP 98.4
[2025-02-14 15:40] LABS: EOSINOPHILS # (AUTO) 0.3 X10'3 (0-0.9); HEMATOCRIT 34.4 % (42.0-52.0); HEMOGLOBIN 11.6 g/dl (14.0-17.9); LYMPHOCYTES # (AUTO) 1.4 X10'3 (1.1-4.8); MEAN CORPUSCULAR HEMOGLOBIN 31.6 PG (27.0-31.0); MONOCYTES # (AUTO) 0.4 X10'3 (0-0.9); NEUTROPHILS # (AUTO) 3.1 X10'3 (1.8-7.7)
[2025-02-14 15:42] LABS: BASOPHILS # (AUTO) 0.1 X10'3 (0-0.2); BASOPHILS % (AUTO) 1.2 % (0-1); EOSINOPHILS % (AUTO) 5.6 % (0-6); LYMPHOCYTES % (AUTO) 26.7 % (21-51); MEAN CORPUSCULAR HGB CONC 33.7 g/dL (33.0-36.5); MEAN CORPUSCULAR VOLUME 93.8 FL (78-98); MONOCYTES % (AUTO) 7.2 % (2-12); NEUTROPHILS % (AUTO) 59.3 % (42-75); PLATELET COUNT 192 X10'3 (140-440); RED BLOOD COUNT 3.67 X10'6 (4.70-6.10); RED CELL DISTRIBUTION WIDTH 15.9 % (11.5-14.5); WHITE BLOOD COUNT 5.3 X10'3 (4.5-11.0)
[2025-02-14 15:52] LABS: ALANINE AMINOTRANSFERASE 30 U/L (12-78); ALBUMIN 3.8 G/DL (3.4-5.0); ALBUMIN/GLOBULIN RATIO 1.1 (1.1-1.5); ALKALINE PHOSPHATASE 39 IU/L (46-116); ANION GAP 7 (8-16); ASPARTATE AMINO TRANSFERASE 64 U/L (10-37); BILIRUBIN,TOTAL 0.3 MG/DL (0.1-1.0); BLOOD UREA NITROGEN 13 MG/DL (7-18); BUN/CREATININE RATIO 12.5 (10.0-20.0); CALCIUM 8.3 MG/DL (8.5-10.1); CHLORIDE 104 MMOL/L (99-107); CREATININE 1.04 MG/DL (0.60-1.10); GLUCOSE 112 MG/DL (70-104); LIPASE 36 U/L (16-77); POTASSIUM 3.6 MMOL/L (3.5-5.1); SODIUM 138 MMOL/L (135-145); TOTAL CARBON DIOXIDE 27.1 MMOL/L (24-32); TOTAL PROTEIN 7.2 G/DL (6.4-8.2); eCRCL 73 ML/MIN; eGFR 73 ML/MIN
[2025-02-14] MEDS ORDERED: iohexol 300mg/ml 100ml inj. ONE (16:04)
[2025-02-14 17:50] VITALS: BP 129/76; PULSE 61; RESP 15; O2SAT 99
== END 2025-02-14 17:51 | disposition home or self-care (01) ==
LOC: ER 14:13
DX: K94.09 Other complications of colostomy (principal); R10.13 Epigastric pain; E78.00 Pure hypercholesterolemia, unspecified; E03.9 Hypothyroidism, unspecified; G89.29 Other chronic pain; M54.9 Dorsalgia, unspecified; K21.9 Gastro-esophageal reflux disease without esophagitis; F32.A Depression, unspecified; F15.90 Other stimulant use, unspecified, uncomplicated; Z59.00 Homelessness unspecified; Z72.89 Other problems related to lifestyle; Z98.890 Other specified postprocedural states; Z90.49 Acquired absence of other specified parts of digestive tract; Z88.0 Allergy status to penicillin; Z88.1 Allergy status to other antibiotic agents
CPT/HCPCS: 36415; 74177; 80053; 83690; 85025; 93005; 99285; Q9967

== ENCOUNTER 2025-05-25 10:34 | Emergency (ER) | payer MEDICAID ==
[~2025-05-25] VITALS: Ht 172.7 cm; Wt 84.1 kg
[2025-05-25 10:35] VITALS: BP 115/67; PULSE 61; RESP 16; TEMP 98.3; O2SAT 94
--- NOTE | 2025-05-25 11:39 | Physician Documentation ---
History of Present Illness ~ Chief Complaint: Diarrhea Stated Complaint: COLOSTOMY BAG CHECK Time Seen by MD: 10:49 Primary Medical Doctor: BOBBI Daugherty Medication Reconciliation Allergies: Coded Allergies: Penicillins (Verified Allergy, Severe, TONGUE SWELLING, 10/07/23) amoxicillin (Verified Allergy, Severe, TONGUE SWELLING, 10/07/23) Past Medical History Past Medical History: High Cholesterol, GERD, Hernia, Hypothyroidism, Chronic Back Pain, Extremity Fracture, Depression Past Surgical History: colectomy, orthopedic surgeries Alcohol Use: Occasionally Drug Use: methamphetamine Lives In: Homeless Physical Exam Vital Signs: Temperature: 98.3, Source: Temporal, Heart Rate: 61, Respiratory Rate: 16, BP: 115/67, Pulse Oximetry: 94, Weight: 84.090 Oxygen Flow Rate: 0 Progress Results/Orders Results/Orders Vital Signs 05/25/25 10:35 Temp 98.3 Pulse 61 Resp 16 B/P (MAP) 115/67 Pulse Ox 94 O2 Flow Rate 0 Departure Time of Disposition: 11:38 Disposition: 01 HOME / SELF CARE / HOMELESS Impression: Primary Impression: Complication of colostomy Additional Impression: Colostomy, evaluate Condition: Stable Discharge Instructions: Colostomy Home Guide, Adult Education Educated: Patient Educated regarding: diagnosis, treatment MIGUELITO WOLF MD May 25, 2025 11:39
== END 2025-05-25 11:55 | disposition home or self-care (01) ==
LOC: ER 10:35
DX: Z93.3 Colostomy status (principal); E78.00 Pure hypercholesterolemia, unspecified; E03.9 Hypothyroidism, unspecified; F15.90 Other stimulant use, unspecified, uncomplicated; Z88.0 Allergy status to penicillin; Z90.49 Acquired absence of other specified parts of digestive tract
CPT/HCPCS: 99284; A4421

== ENCOUNTER → 2025-07-19 | Emergency (ER) | payer MEDICAID ==
[~2025-07-19] VITALS: Ht 172.7 cm; Wt 83.2 kg
[2025-07-19 12:04] VITALS: TEMP 98.5
--- NOTE | 2025-07-19 13:00 | Physician Documentation ---
History of Present Illness ~ General Chief Complaint: See Chief Complaint Stated Complaint: COLOSTOMY ISSUES Time Seen by MD: 12:32 OK to notify your PCP?: Yes Primary Medical Doctor: BOBBI Daugherty Source: patient Mode of Arrival: POV Exam Limitations: no limitations History of Present Illness Initial Comments 59-year-old male comes from home via EMS for leaking colostomy bag he states that he has ran out of supplies in his currently using his last back. He is requesting more colostomy supplies. He states that he has a colostomy bag due to a history of diverticulitis. He has follow up with his GI specialist in 2 weeks for a repeat colonoscopy. No new medical complaints. Medication Reconciliation Allergies: Coded Allergies: Penicillins (Verified Allergy, Severe, TONGUE SWELLING, 07/19/25) amoxicillin (Verified Allergy, Severe, TONGUE SWELLING, 07/19/25) Past Medical History Past Medical History: High Cholesterol, GERD, Hernia, Hypothyroidism, Chronic Back Pain, Extremity Fracture, Depression Past Surgical History: colectomy, orthopedic surgeries Alcohol Use: Occasionally Drug Use: methamphetamine Lives In: Homeless Review of Systems All Other Systems at this time: Reviewed and Negative Physical Exam Physical Exam Vital Signs: RN Vital Signs have been reviewed: Yes, Temperature: 98.5, Source: Oral, Heart Rate: 61, Respiratory Rate: 18, BP: 111/71, Pulse Oximetry: 96, Weight: 83.200 Oxygen Flow Rate: 0 Pulse Oximetry Reflects: adequate oxygenation Physical Exam General: Alert, no apparent distress. HEENT: PERRL, EOMI, no injection, moist mucous membranes. Neck: Full range of motion. Respiratory: Lungs clear, no respiratory distress. Chest: No accessory muscle use. Cardiovascular: Regular rate and rhythm, no murmurs. Gastrointestinal: Soft, nontender, nondistended. Bowels sounds present. Colostomy bag present. Extremities: Normal range of motion, no deformity. Neurologic: Oriented x4. Psychiatric: Normal mood and affect. Skin: Normal color, warm and dry. No edema, no ecchymosis. Progress Results/Orders Reviewed/noted all lab results: Yes Results/Orders Vital Signs 07/19/25 12:04 Temp 98.5 Pulse 61 Resp 18 B/P (MAP) 111/71 Pulse Ox 96 O2 Flow Rate 0 Medical Decision Making Additional info obtained from: old records Findings He is requesting some colostomy supplies as he has ran out at home. He says that he was having trouble getting a good seal and that is why he ran through his supplies little quicker than normal. The nurse was able to place a new colostomy bag while in the department. He has no new medical complaints. He was given discharge instructions as well as follow up instructions. Departure Disposition: HOME / SELF CARE / HOMELESS Impression: Primary Impression: Complication of colostomy Condition: Stable Additional Instructions: Please continue to see your GI doctor as scheduled in the next 2 weeks. Return back here for any new or worsening symptoms. Referrals: NO PRIMARY CARE PROVIDER (PCP) Education Educated: Patient Educated regarding: diagnosis, treatment, prognosis, need for follow up Additional Comment Medical Screen Exam This patient recieved a medical screening examination. After reviewing the individual's medical complaints with presenting symptoms and performing an appropriate physical examination, it was determined that no immediate life- threatening emergency medical condition is present. This individual is also not a women having contractions. Signature Scribe Signature: . Attestation: Scribed for Jacqui Anderson by Jacqui Ortiz NP . 07/19/25 13:03 Parts of this note were created using [employer] voice recognition software program. While efforts were made to correct any mistakes made by this voice recognition software program, nonsensical phrases may remain in this note. In addition, there may be errors and syntax, grammar, content and spelling. JACQUI ANDERSON Jul 19, 2025 13:00
[2025-07-19 13:25] VITALS: BP 115/86; PULSE 58; RESP 16; O2SAT 96
== END | disposition home or self-care (01) ==
LOC: ER 12:00
DX: K94.09 Other complications of colostomy (principal); G89.29 Other chronic pain; E78.00 Pure hypercholesterolemia, unspecified; E03.9 Hypothyroidism, unspecified; K21.9 Gastro-esophageal reflux disease without esophagitis; F15.90 Other stimulant use, unspecified, uncomplicated; F32.A Depression, unspecified; Z98.890 Other specified postprocedural states; Z72.89 Other problems related to lifestyle; Z59.00 Homelessness unspecified; Z90.49 Acquired absence of other specified parts of digestive tract; Z88.0 Allergy status to penicillin; Z88.1 Allergy status to other antibiotic agents
CPT/HCPCS: 99283; J7030